=== PATIENT | male | born 1930 | race Caucasian/White ===

== ENCOUNTER 2017-10-08 10:02 | Inpatient (IN) | payer MEDICARE, OTHER ==
[2017-10-08 10:44] LABS: ADD MAN DIFF? NO
[2017-10-08 10:47] LABS: BASO # 0.1 x10^3/uL (0.0-0.2); BASO % 1 % (0-3); EOS # 0.1 x10^3/uL (0.0-0.7); EOS % 1 % (0-3); HEMATOCRIT 37.4 % (39.0-53.0); HEMOGLOBIN 12.5 g/dL (13.0-17.5); LYMPH # 1.7 x10^3/uL (1.0-4.8); LYMPH % 22 % (24-48); MEAN CORPUSCULAR HEMOGLOBIN 29 pg (25-35); MEAN CORPUSCULAR HGB CONC 33 g/dL (31-37); MEAN CORPUSCULAR VOLUME 87 fL (79-100); MONO # 0.7 x10^3/uL (0.0-1.1); MONO % 9 % (0-9); NEUT # 5.4 x10^3uL (1.8-7.7); NEUT % 67 % (31-73); PLATELET COUNT 221 x10^3/uL (140-400); RED BLOOD COUNT 4.28 x10^6/uL (4.30-5.70); RED CELL DISTRIBUTION WIDTH 13.6 % (11.5-14.5)
[2017-10-08 11:00] LABS: INR 1.1 (0.8-1.1); PARTIAL THROMBOPLASTIN TIME 33 SEC (24-38); PROTHROMBIN TIME PATIENT 13.2 SEC (11.7-14.0)
[2017-10-08 11:04] LABS: ANION GAP 12 (6-14); BLOOD UREA NITROGEN 25 mg/dL (8-26); CALCIUM 9.6 mg/dL (8.5-10.1); CARBON DIOXIDE 25 mmol/L (21-32); CHLORIDE 95 mmol/L (98-107); CREATININE 1.8 mg/dL (0.7-1.3); GLUCOSE 110 mg/dL (70-99); POTASSIUM 4.4 mmol/L (3.5-5.1); SODIUM 132 mmol/L (136-145)
[2017-10-08 11:09] LABS: ALBUMIN 3.8 g/dL (3.4-5.0); ALK PHOS 44 U/L (46-116); ALT (SGPT) 20 U/L (16-63); AST (SGOT) 26 U/L (15-37); DIRECT BILIRUBIN 0.3 mg/dL (0.0-0.2); MAGNESIUM 1.9 mg/dL (1.8-2.4); TOTAL BILIRUBIN 0.7 mg/dL (0.2-1.0); TOTAL PROTEIN 7.6 g/dL (6.4-8.2)
[2017-10-08 11:09] LABS: AMMONIA 11 mcmol/L (11-34)
[2017-10-08 11:13] LABS: TROPONINI < 0.017 ng/mL (0.000-0.055)
[2017-10-08 11:19] LABS: NT-PRO BNP 233 pg/mL (0-449)
[2017-10-08 11:19] LABS: CKMB MASS 3.1 ng/mL (0.0-3.6); CREATINE KINASE 158 U/L (39-308)
[2017-10-08 11:31] LABS: BASE EXCESS ABG -2 mmol/L (-3-3); HCO3 ABG 22 mmol/L (21-28); PCO2 ABG 36 mmHg (35-46); PH ABG 7.41 (7.35-7.45); PO2 ABG 63 mmHg (65-108); SAT O2 ABG 92 % (92-99)
[2017-10-08] MEDS ORDERED: ONDANSETRON PF 4 MG/2 ML VIAL. IV (13:45)
[2017-10-08 14:04] LABS: BILIRUBIN,URINE NEGATIVE (NEG); CLARITY,URINE CLEAR; COLOR,URINE YELLOW; GLUCOSE,URINE NEGATIVE (NEG); NITRITE,URINE NEGATIVE (NEG); PH,URINE 6.5; PROTEIN,URINE NEGATIVE (NEG-TRACE)
[2017-10-08 14:11] LABS: BARBITURATES NEG (NEG); BENZODIAZEPINES NEG (NEG); CANNABINOIDS NEG (NEG); COCAINE NEG (NEG); METHADONE NEG (NEG); OPIATES NEG (NEG); PHENCYCLIDINE NEG (NEG)
[2017-10-08 14:13] LABS: AMPHETAMINE/METHAMPHETAMINE NEG (NEG); ETHANOL, URINE NEG (NEG); RBC,URINE 0 /HPF (0-2)
[2017-10-08 14:14] LABS: BACTERIA,URINE 0 /HPF (0-FEW); SQUAMOUS EPITHELIAL CELL,UR FEW /LPF
[2017-10-08] MEDS ORDERED: ALBUTEROL SULFATE 2.5 MG/3 ML NEBU. NEB (15:00)
[2017-10-08] MEDS ORDERED: ALBUTEROL SULFATE 8GM INHALER. INH (15:00)
[2017-10-08] MEDS: MECLIZINE HCL 12.5 MG TABLET. PO ×2 (15:00→20:54)
[2017-10-08] MEDS: CARVEDILOL 12.5 MG TABLET. PO (17:36)
[2017-10-08] MEDS: BUDESONIDE 0.5 MG/2 ML NEBU. NEB (19:59)
[2017-10-08] MEDS: ALBUTEROL SULFATE 2.5 MG/3 ML NEBU. NEB (19:59)
[2017-10-08] MEDS: ZOLPIDEM 5 MG TABLET. PO (20:54)
[2017-10-08] MEDS: APIXABAN 2.5 MG TABLET. PO (20:54)
[2017-10-08] MEDS: SIMVASTATIN 40 MG TABLET. PO (20:54)
[2017-10-08] MEDS: MIRTAZAPINE 15 MG TABLET PO (20:54)
[2017-10-08] MEDS ORDERED: NON FORMULARY ITEM (Fluticasone/Salmeterol (Advair 250-50 Diskus) 1 PUFF) IH (21:00)
[2017-10-09 01:43] LABS: ADD MAN DIFF? NO
[2017-10-09 02:07] LABS: BASO # 0.1 x10^3/uL (0.0-0.2); BASO % 1 % (0-3); EOS # 0.1 x10^3/uL (0.0-0.7); EOS % 1 % (0-3); HEMATOCRIT 33.6 % (39.0-53.0); HEMOGLOBIN 11.3 g/dL (13.0-17.5); LYMPH # 1.9 x10^3/uL (1.0-4.8); LYMPH % 24 % (24-48); MEAN CORPUSCULAR HEMOGLOBIN 29 pg (25-35); MEAN CORPUSCULAR HGB CONC 34 g/dL (31-37); MEAN CORPUSCULAR VOLUME 88 fL (79-100); MONO # 0.6 x10^3/uL (0.0-1.1); MONO % 8 % (0-9); NEUT # 5.2 x10^3uL (1.8-7.7); NEUT % 66 % (31-73); PLATELET COUNT 208 x10^3/uL (140-400); RED BLOOD COUNT 3.84 x10^6/uL (4.30-5.70); RED CELL DISTRIBUTION WIDTH 13.5 % (11.5-14.5); WHITE BLOOD COUNT 7.9 x10^3/uL (4.0-11.0)
[2017-10-09 02:25] LABS: ANION GAP 9 (6-14); BLOOD UREA NITROGEN 25 mg/dL (8-26); CALCIUM 9.2 mg/dL (8.5-10.1); CARBON DIOXIDE 27 mmol/L (21-32); CHLORIDE 97 mmol/L (98-107); CHOLESTEROL 190 mg/dL (0-200); CREATININE 1.7 mg/dL (0.7-1.3); GFR 38.4; GLUCOSE 102 mg/dL (70-99); HDLC 16 mg/dL (40-60); LDLC 109 mg/dL (0-100); NON-HDL CHOLESTEROL 174 mg/dL (0-129); POTASSIUM 4.1 mmol/L (3.5-5.1); SODIUM 133 mmol/L (136-145); TRIGLYCERIDES 325 mg/dL (0-150); VLDLC 65 mg/dL (0-40)
[2017-10-09 02:26] LABS: CHOLESTEROL/HDL RATIO 11.9
[2017-10-09 02:28] LABS: TROPONINI 0.023 ng/mL (0.000-0.055)
[2017-10-09 02:35] LABS: THYROID STIM HORMONE (TSH) 51.266 uIU/mL (0.358-3.74)
[2017-10-09 03:54] LABS: SEDIMENTATION RATE 10 (0-15)
[2017-10-09] MEDS: BUDESONIDE 0.5 MG/2 ML NEBU. NEB ×2 (07:44→20:06)
[2017-10-09] MEDS: ALBUTEROL SULFATE 2.5 MG/3 ML NEBU. NEB ×4 (07:45→20:06)
[2017-10-09 09:02] LABS: VITAMIN-B12 1099 pg/mL (247-911)
[2017-10-09 09:02] LABS: FOLATE 3.24 ng/ml (3.2-20.0)
[2017-10-09] MEDS: CITALOPRAM 20 MG TABLET. PO (09:49)
[2017-10-09] MEDS: DOXAZOSIN MESYLATE 4 MG TABLET. PO (09:49)
[2017-10-09] MEDS: TAMSULOSIN 0.4 MG CAP.ER.24H. PO (09:50)
[2017-10-09] MEDS: LEVOTHYROXINE 50 MCG TABLET PO (09:50)
[2017-10-09] MEDS: MECLIZINE HCL 12.5 MG TABLET. PO ×3 (09:50→20:18)
[2017-10-09] MEDS: LISINOPRIL 10 MG TABLET PO (09:50)
[2017-10-09] MEDS: APIXABAN 2.5 MG TABLET. PO ×2 (09:51→20:18)
[2017-10-09] MEDS: CARVEDILOL 12.5 MG TABLET. PO ×2 (09:51→16:57)
[2017-10-09] MEDS: ASPIRIN ENTERIC COATED 325 MG TABLET.DR. PO (09:51)
[2017-10-09] MEDS: SIMVASTATIN 40 MG TABLET. PO (20:17)
[2017-10-09] MEDS: ZOLPIDEM 5 MG TABLET. PO (20:18)
[2017-10-09] MEDS: MIRTAZAPINE 15 MG TABLET PO (20:18)
[2017-10-10] MEDS: LEVOTHYROXINE 50 MCG TABLET PO (06:07)
[2017-10-10] MEDS: CITALOPRAM 20 MG TABLET. PO (08:42)
[2017-10-10] MEDS: ASPIRIN ENTERIC COATED 325 MG TABLET.DR. PO (08:42)
[2017-10-10] MEDS: MECLIZINE HCL 12.5 MG TABLET. PO ×3 (08:42→21:59)
[2017-10-10] MEDS: DOXAZOSIN MESYLATE 4 MG TABLET. PO (08:42)
[2017-10-10] MEDS: TAMSULOSIN 0.4 MG CAP.ER.24H. PO (08:42)
[2017-10-10] MEDS: APIXABAN 2.5 MG TABLET. PO ×2 (08:43→21:59)
[2017-10-10] MEDS: CARVEDILOL 12.5 MG TABLET. PO ×2 (08:46→17:06)
[2017-10-10] MEDS: LISINOPRIL 10 MG TABLET PO (08:46)
[2017-10-10] MEDS: BUDESONIDE 0.5 MG/2 ML NEBU. NEB ×2 (09:21→20:00)
[2017-10-10] MEDS: ALBUTEROL SULFATE 2.5 MG/3 ML NEBU. NEB ×4 (09:21→20:00)
[2017-10-10] MEDS: ANTI-COAG MONITOR BY PHARMACY. MC (14:35)
[2017-10-10] MEDS: SIMVASTATIN 40 MG TABLET. PO (21:59)
[2017-10-10] MEDS: ZOLPIDEM 5 MG TABLET. PO (21:59)
[2017-10-10] MEDS: MIRTAZAPINE 15 MG TABLET PO (21:59)
[2017-10-11] MEDS: LEVOTHYROXINE 50 MCG TABLET PO (06:17)
[2017-10-11] MEDS: ANTI-COAG MONITOR BY PHARMACY. MC (07:46)
[2017-10-11] MEDS: ALBUTEROL SULFATE 2.5 MG/3 ML NEBU. NEB ×2 (07:56→11:33)
[2017-10-11] MEDS: BUDESONIDE 0.5 MG/2 ML NEBU. NEB (07:56)
[2017-10-11] MEDS: CARVEDILOL 12.5 MG TABLET. PO (08:00)
[2017-10-11] MEDS: ASPIRIN ENTERIC COATED 325 MG TABLET.DR. PO (08:27)
[2017-10-11] MEDS: TAMSULOSIN 0.4 MG CAP.ER.24H. PO (08:28)
[2017-10-11] MEDS: CITALOPRAM 20 MG TABLET. PO (08:28)
[2017-10-11] MEDS: DOXAZOSIN MESYLATE 4 MG TABLET. PO (08:28)
[2017-10-11] MEDS: LISINOPRIL 10 MG TABLET PO (08:29)
[2017-10-11] MEDS: MECLIZINE HCL 12.5 MG TABLET. PO ×2 (08:29→13:47)
[2017-10-11] MEDS: APIXABAN 2.5 MG TABLET. PO (08:33)
== END 2017-10-11 15:01 | DRG 64 ==
LOC: ER 10:02 → 5 SOUTH 11:45
DX: I63.9 Cerebral infarction, unspecified (principal); G93.40 Encephalopathy, unspecified; I48.91 Unspecified atrial fibrillation; F03.90 Unspecified dementia, unspecified severity, without behavioral disturbance, psychotic disturbance, mood disturbance, and anxiety; I25.5 Ischemic cardiomyopathy; E03.9 Hypothyroidism, unspecified; E78.5 Hyperlipidemia, unspecified; G47.33 Obstructive sleep apnea (adult) (pediatric); G43.909 Migraine, unspecified, not intractable, without status migrainosus; I25.10 Atherosclerotic heart disease of native coronary artery without angina pectoris; H91.90 Unspecified hearing loss, unspecified ear; I12.9 Hypertensive chronic kidney disease with stage 1 through stage 4 chronic kidney disease, or unspecified chronic kidney disease; I73.9 Peripheral vascular disease, unspecified; N18.3 Chronic kidney disease, stage 3 (moderate); Z82.3 Family history of stroke; Z86.73 Personal history of transient ischemic attack (TIA), and cerebral infarction without residual deficits; Z87.891 Personal history of nicotine dependence; Z95.5 Presence of coronary angioplasty implant and graft
CPT/HCPCS: 36415; 36600; 70450; 71045; 80048; 80061; 80076; 80307; 81001; 82140; 82553; 82607; 82746; 82805; 83735; 83880; 84443; 84484; 85025; 85610; 85651; 85730; 87086; 93005; 93306; 93880; 94640; 94760; 97116-GP; 97162-GP; 97165-GO; 99285; 99285-25; J7613; J7626; J8597

== ENCOUNTER 2018-04-13 11:33 | Emergency (ER) | payer MEDICARE, OTHER ==
[~2018-04-13] VITALS: Ht 175.3 cm; Wt 81.6 kg
[~2018-04-13 11:33] MED LIST: ACET325T9 PO; ALBU8.5H8 PO; APIX2.5T PO; CARV25TA2 PO; CITA40TA5 PO; DONE5TAB56 PO; DOXA8TAB59 PO; FENO200C PO; FLUT1DIS3 IH; LEVO50TA5 PO; LEVO75TA5 PO; LISI-338 PO; LISI10TA2 PO; MECL25TA3 PO; MIRT15TA3 PO; MIRT30TA3 PO; POLY15DR28 OP; SIMV20TA3 PO; SIMV40TA3 PO; TAMS0.4C2 PO; ZOLP5TAB5 PO
--- NOTE | 2018-04-13 12:16 | PHYS DOC ---
Past Medical History Past Medical History: A-Fib, CAD, COPD, Dementia, Depression, High Cholesterol , Heart Disease, Hypertension, Hypothyroid, Migraines, Renal Disease, Other Additional Past Medical Histor: prostate problems possible CA; sleep apnea; Abd aortic aneurysm Past Surgical History: Appendectomy, Pacemaker, Other Additional Past Surgical Histo: back; veins in legs; hernia Alcohol Use: None Drug Use: None Social History Narrative: patient lives in an assisted living facility Adult General Chief Complaint Chief Complaint: MECHANICAL FALL HPI HPI Patient is an 87 old male who presents to the emergency department for evaluation. Earlier this morning, the patient slipped on a slick floor in his bathroom, and fell and hit the back of his head on the shower. He also appears to have some back tenderness. He did not feel dizzy or lightheaded prior to the fall but states he slipped on the wet surface of the floor. He denies loss of consciousness. He was able to have himself off of the floor, and get himself dressed and is ambulatory at baseline, with the use of his cane. Other than some mild pain in his head, he denies any other painful areas. He denies any extremity injury or pain, numbness, weakness. His mental status is not different than baseline, according to his son who accompanies him to the emergency department. There are no alleviating, or exacerbating factors to his symptoms otherwise. The patient does take Eliquis for a past history of atrial fibrillation. The patient's son states that he was steady on his feet today, with the use of his cane. The patient does have a history of a AAA, which is being monitored. He was last noted at 4.1 cm earlier this year. Review of Systems Review of Systems Constitutional: Denies fever or chills [] Eyes: Denies change in visual acuity, redness, or eye pain [] HENT: Denies nasal congestion or sore throat [] Respiratory: Denies cough or shortness of breath [] Cardiovascular: The patient denies any shortness of breath, chest pain, palpitations, or orthopnea [] GI: Denies abdominal pain, nausea, vomiting, bloody stools or diarrhea [] : Denies dysuria or hematuria [] Musculoskeletal: Denies neck pain or joint pain [] Integument: Denies rash or skin lesions [] Neurologic: Denies confusion, focal weakness or sensory changes [] Endocrine: Denies polyuria or polydipsia [] All other systems were reviewed and found to be within normal limits, except as documented in this note. Current Medications Current Medications Current Medications Medications (Trade) Dose Ordered Sig/James Start Time Stop Time Status Last Admin Dose Admin Acetaminophen (Tylenol) 650 mg 1X ONCE 04/13/18 12:30 04/13/18 12:31 DC 04/13/18 12:20 650 MG Allergies Allergies Allergies Coded Allergies Type Severity Reaction Last Updated Verified No Known Medication Allergies Allergy Unknown 02/05/18 Yes Uncoded Allergies Type Severity Reaction Last Updated Verified NON MRI PACEMAKER Allergy Unknown 10/08/17 Physical Exam Physical Exam PHYSICAL EXAM: CONSTITUTIONAL: Well developed, well nourished HEAD: normocephalic, is a contusion on the posterior aspect of the scalp, more to the right of midline. There is no crepitus, the remainder of the cranium is atraumatic. EENT: PERRL, EOMI. Conjunctivae normal color, sclerae non-icteric; moist mucous membranes. NECK: Supple, non-tender; no meningismus. LUNGS: Lungs CTA, breathing even and unlabored. Normal air movement. HEART: Regular rate and rhythm, no murmur CHEST: No deformity; non-tender ABDOMEN: The abdomen is soft, and non-tender, no masses or bruits. EXTREM: Normal ROM; no deformity, no calf tenderness. Normal pulses palpable in all extremities. There is no pedal edema. The extremities are atraumatic, without any tenderness to palpation. SKIN: No rash; no diaphoresis NEURO: Alert; normal speech and cognition; CN's grossly intact; strength grossly intact without focal deficit. BACK: No CVA TTP. There is tenderness to palpation of the lumbar spine diffusely , without any step-off. The remainder of the back is nontender. Current Patient Data Vital Signs Vital Signs Date Time Temp Pulse Resp B/P (MAP) Pulse Ox O2 Delivery O2 Flow Rate FiO2 04/13/18 11:59 98.1 68 20 163/84 (110) 95 Room Air 98.1 EKG EKG Probable atrial sensed, ventricular paced rhythm at a rate of 68 bpm with QRS widening without acute ischemic ST/T changes. Radiology/Procedures Radiology/Procedures [PROCEDURE: CT HEAD WO CONTRAST CT HEAD WO CONTRAST Indication: Head injury after a fall. Exposure: One or more of the following individualized dose reduction techniques were utilized for this examination: 1. Automated exposure control 2. Adjustment of the mA and/or kV according to patient size 3. Use of iterative reconstruction technique. Comparison: October 08, 2017 image is available but the report is not available Contrast: None FINDINGS: Posterior fossa is unremarkable. No evidence of acute intracranial hemorrhage or abnormal extra-axial fluid collection. No evidence of mass effect or midline shift. Low-density in the white matter bilaterally, a nonspecific finding, but which is commonly due to chronic small vessel ischemic disease in a patient of this age. Prominence of ventricles and sulci, compatible with involutional change or atrophy. Intracranial arterial calcifications are identified. There are 2 small hypodense foci in the right thalamus, also identified on prior study, most compatible with small lacunar infarcts. Low-density in the occipital lobe may be due to an enlarged retracted occipital horn of the ventricle, or an adjacent encephalomalacia. This was also seen previously. Visualized orbits are unremarkable. Visualized paranasal sinuses and mastoids are clear. No evidence of depressed skull fracture. Hyperdense swelling of the high right posterior parietal scalp, most likely a hematoma. Impression: 1. High right parietal scalp hematoma. 2. No acute intracranial hemorrhage. 3. Chronic findings are again identified, detailed above.] PROCEDURE: LUMBAR SPINE 2-3V Examination: 2 views of the lumbar spine HISTORY: History of lobe. Fall COMPARISON: None available FINDINGS: The visualized vertebral body heights are maintained. There is mild 2 mm anterolisthesis of L3 on L4. There is severe intervertebral disc height loss identified throughout the lumbar spine particularly at L3-L4 vertebral level. Mild lumbar dextro scoliosis. Diffuse atherosclerotic calcification of the abdominal aorta with aneurysmal change of the infrarenal abdominal aorta measuring 5 cm in AP dimension IMPRESSION: 1. Severe degenerative changes lumbar spine. 2. Abdominal aortic aneurysm. Course & Med Decision Making Course & Med Decision Making Pertinent Imaging studies reviewed. (See chart for details) [1:40 PM:Patient remains stable. I discussed test results, the need for close follow-up, and return precautions.] Dragon Disclaimer Dragon Disclaimer This electronic medical record was generated, in whole or in part, using a voice recognition dictation system. Departure Departure Impression: Primary Impression: Head injury Additional Impression: Contusion, back Disposition: 01 HOME, SELF-CARE Condition: STABLE Referrals: JACOB SOUTH MD (PCP) Patient Instructions: Back Injury Prevention, Fall Prevention and Home Safety, Head Injury, Adult Problem Qualifiers MINOO LUNDY MD Apr 13, 2018 12:16
[2018-04-13] MEDS ORDERED: ACETAMINOPHEN 325 MG TABLET. PO ONE (12:30)
--- NOTE | 2018-04-13 12:44 | RAD ---
Examination: 2 views of the lumbar spine HISTORY: History of lobe. Fall COMPARISON: None available FINDINGS: The visualized vertebral body heights are maintained. There is mild 2 mm anterolisthesis of L3 on L4. There is severe intervertebral disc height loss identified throughout the lumbar spine particularly at L3-L4 vertebral level. Mild lumbar dextro scoliosis. Diffuse atherosclerotic calcification of the abdominal aorta with aneurysmal change of the infrarenal abdominal aorta measuring 5 cm in AP dimension IMPRESSION: 1. Severe degenerative changes lumbar spine. 2. Abdominal aortic aneurysm. Electronically signed by: Venu Rosen MD (04/13/2018 12:40 PM) [id number]
--- NOTE | 2018-04-13 13:08 | RAD ---
CT HEAD WO CONTRAST Indication: Head injury after a fall. Exposure: One or more of the following individualized dose reduction techniques were utilized for this examination: 1. Automated exposure control 2. Adjustment of the mA and/or kV according to patient size 3. Use of iterative reconstruction technique. Comparison: October 08, 2017 image is available but the report is not available Contrast: None FINDINGS: Posterior fossa is unremarkable. No evidence of acute intracranial hemorrhage or abnormal extra-axial fluid collection. No evidence of mass effect or midline shift. Low-density in the white matter bilaterally, a nonspecific finding, but which is commonly due to chronic small vessel ischemic disease in a patient of this age. Prominence of ventricles and sulci, compatible with involutional change or atrophy. Intracranial arterial calcifications are identified. There are 2 small hypodense foci in the right thalamus, also identified on prior study, most compatible with small lacunar infarcts. Low-density in the occipital lobe may be due to an enlarged retracted occipital horn of the ventricle, or an adjacent encephalomalacia. This was also seen previously. Visualized orbits are unremarkable. Visualized paranasal sinuses and mastoids are clear. No evidence of depressed skull fracture. Hyperdense swelling of the high right posterior parietal scalp, most likely a hematoma. Impression: 1. High right parietal scalp hematoma. 2. No acute intracranial hemorrhage. 3. Chronic findings are again identified, detailed above. Electronically signed by: Raad Saucedo MD (04/13/2018 1:05 PM) [id number]
[2018-04-13 14:00] VITALS: BP 159/85
== END 2018-04-13 14:17 | disposition home or self-care (01) ==
LOC: ER 11:33
DX: S30.0XXA Contusion of lower back and pelvis, initial encounter (principal); S09.90XA Unspecified injury of head, initial encounter; I71.4 Abdominal aortic aneurysm, without rupture; I48.91 Unspecified atrial fibrillation; J44.9 Chronic obstructive pulmonary disease, unspecified; I25.10 Atherosclerotic heart disease of native coronary artery without angina pectoris; E78.00 Pure hypercholesterolemia, unspecified; I11.9 Hypertensive heart disease without heart failure; E03.9 Hypothyroidism, unspecified; G43.909 Migraine, unspecified, not intractable, without status migrainosus; N28.9 Disorder of kidney and ureter, unspecified; G47.30 Sleep apnea, unspecified; Z90.89 Acquired absence of other organs; F03.90 Unspecified dementia, unspecified severity, without behavioral disturbance, psychotic disturbance, mood disturbance, and anxiety; Z98.890 Other specified postprocedural states; Z95.0 Presence of cardiac pacemaker; W01.198A Fall on same level from slipping, tripping and stumbling with subsequent striking against other object, initial encounter; Y93.E8 Activity, other personal hygiene; Y92.091 Bathroom in other non-institutional residence as the place of occurrence of the external cause; Y99.8 Other external cause status
CPT/HCPCS: 70450; 72100; 99284-25

== ENCOUNTER 2018-04-20 08:23 | Emergency (ER) | payer MEDICARE, OTHER ==
[~2018-04-20] VITALS: Ht 172.7 cm; Wt 83.9 kg
[2018-04-20 08:57] LABS: BASO # 0.1 x10^3/uL (0.0-0.2); BASO % 1 % (0-3); EOS # 0.2 x10^3/uL (0.0-0.7); EOS % 2 % (0-3); HEMATOCRIT 34.6 % (39.0-53.0); HEMOGLOBIN 11.9 g/dL (13.0-17.5); LYMPH # 1.8 x10^3/uL (1.0-4.8); LYMPH % 19 % (24-48); MEAN CORPUSCULAR HEMOGLOBIN 30 pg (25-35); MEAN CORPUSCULAR HGB CONC 34 g/dL (31-37); MEAN CORPUSCULAR VOLUME 86 fL (79-100); MONO # 1.1 x10^3/uL (0.0-1.1); MONO % 12 % (0-9); NEUT # 6.5 x10^3uL (1.8-7.7); NEUT % 67 % (31-73); PLATELET COUNT 177 x10^3/uL (140-400); RED BLOOD COUNT 4.03 x10^6/uL (4.30-5.70); RED CELL DISTRIBUTION WIDTH 13.9 % (11.5-14.5); WHITE BLOOD COUNT 9.7 x10^3/uL (4.0-11.0)
--- NOTE | 2018-04-20 09:06 | EKG ---
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
[2018-04-20 09:13] LABS: CALCIUM 8.7 mg/dL (8.5-10.1); CREATININE 1.5 mg/dL (0.7-1.3); GFR 44.4; POTASSIUM 4.4 mmol/L (3.5-5.1)
--- NOTE | 2018-04-20 09:14 | RAD ---
Portable chest, 04/20/2018: HISTORY: Shortness of breath, trouble swallowing Comparison is made to a study from 02/05/2018. A left-sided transvenous pacing device remains in place with 3 leads extending into the heart. The heart size and pulmonary vascularity are normal. There is calcific plaquing and tortuosity of the thoracic aorta. No pulmonary infiltrate is seen. There is no evidence of pleural fluid. IMPRESSION: No acute cardiopulmonary abnormality is detected. Electronically signed by: Rex Polanco MD (04/20/2018 9:10 AM) [facility]
[2018-04-20] MEDS ORDERED: MORPHINE SULFATE 4 MG/ML VIAL. IV ONE (09:15)
[2018-04-20 09:25] LABS: ALBUMIN 3.4 g/dL (3.4-5.0); CREATINE KINASE 60 U/L (39-308); TOTAL BILIRUBIN 0.5 mg/dL (0.2-1.0); TOTAL PROTEIN 6.9 g/dL (6.4-8.2)
[2018-04-20] MEDS ORDERED: IOHEXOL 300 MG/ML 100ML VIAL. IV ONE (09:30)
[2018-04-20] MEDS ORDERED: CONTRAST GIVEN. MC PRN (09:45)
--- NOTE | 2018-04-20 10:13 | RAD ---
CT of the facial bones with contrast, 04/20/2018: HISTORY: Left jaw swelling Multidetector CT imaging was performed following an IV bolus injection of iodinated contrast material. There is subcutaneous edema in the submandibular region, left greater than right. The greatest streaky inflammation is centered along the inferior aspect of the left parotid gland. The left parotid gland is larger than the right. No discrete drainable fluid collection is seen to suggest abscess. The submandibular glands show no intrinsic abnormality. There is minimal mucosal thickening in the paranasal sinuses bilaterally. There may be a trace amount of free fluid in the dependent aspect of the left maxillary sinus. The orbital contents are unremarkable. There are numerous teeth absent superiorly and inferiorly. There is dental disease involving the remaining teeth. IMPRESSION: 1. Streaky inflammation in the submandibular region bilaterally, left greater than right, most prominent along the inferior margin of the left parotid gland. This inflammatory process may be of parotid or odontogenic origin. No discrete abscess is evident. 2. Mild mucosal thickening in the paranasal sinuses. PQRS Compliance Statement: One or more of the following individualized dose reduction techniques were utilized for this examination: 1. Automated exposure control 2. Adjustment of the mA and/or kV according to patient size 3. Use of iterative reconstruction technique Electronically signed by: Rex Polanco MD (04/20/2018 10:09 AM) [facility]
[2018-04-20] MEDS ORDERED: CLIN300C8 PO (10:55)
--- NOTE | 2018-04-20 10:56 | PHYS DOC ---
Past Medical History Past Medical History: A-Fib, CAD, COPD, Dementia, Depression, High Cholesterol , Heart Disease, Hypertension, Hypothyroid, Migraines, Renal Disease, Other Additional Past Medical Histor: prostate problems possible CA; sleep apnea; Abd aortic aneurysm Past Surgical History: Appendectomy, Pacemaker, Other Additional Past Surgical Histo: back; veins in legs; hernia Alcohol Use: None Drug Use: None Adult General Chief Complaint Chief Complaint: FACE PROBLEM HPI HPI Patient is a 87 year old male who presents with pain and swelling to the patient's left jaw. The patient had dental work done approximately one week ago and had his 2 front bottom teeth removed. He states that he had the sudden swelling that started yesterday. It is now very painful. He is still eating and drinking normally. He denies fever, nausea or vomiting. The patient does state that he has some mild left rib pain that is worse when he pushes on his rib. He denies radiation of the pain, diaphoresis or weakness. Review of Systems Review of Systems Constitutional: Denies fever or chills [] Eyes: Denies change in visual acuity, redness, or eye pain [] HENT: See history of present illness Respiratory: Denies cough or shortness of breath [] Cardiovascular: No additional information not addressed in HPI [] GI: Denies abdominal pain, nausea, vomiting, bloody stools or diarrhea [] : Denies dysuria or hematuria [] Musculoskeletal: See history of present illness Integument: Denies rash or skin lesions [] Neurologic: Denies headache, focal weakness or sensory changes [] Endocrine: Denies polyuria or polydipsia [] All other systems were reviewed and found to be within normal limits, except as documented in this note. Current Medications Current Medications Current Medications Medications (Trade) Dose Ordered Sig/James Start Time Stop Time Status Last Admin Dose Admin Info (CONTRAST GIVEN -- Rx MONITORING) 1 each PRN DAILY PRN 04/20/18 09:45 04/20/18 11:26 DC Iohexol (Omnipaque 300 Mg/ml) 75 ml 1X ONCE 04/20/18 09:30 04/20/18 09:34 DC 04/20/18 09:34 75 ML Morphine Sulfate (Morphine Sulfate) 4 mg 1X ONCE 04/20/18 09:15 04/20/18 09:16 DC 04/20/18 09:47 4 MG Allergies Allergies Allergies Coded Allergies Type Severity Reaction Last Updated Verified No Known Medication Allergies Allergy Unknown 02/05/18 Yes Uncoded Allergies Type Severity Reaction Last Updated Verified NON MRI PACEMAKER Allergy Unknown 10/08/17 Physical Exam Physical Exam Constitutional: Well developed, well nourished, no acute distress, non-toxic appearance. [] HENT: Normocephalic, atraumatic, bilateral external ears normal, oropharynx moist, golf ball size swelling to the patient's left jaw that is firm and warm Eyes: PERRLA, EOMI, conjunctiva normal, no discharge. [] Neck: Normal range of motion, no tenderness, supple, no stridor. [] Cardiovascular:Heart rate regular rhythm, no murmur [] Lungs & Thorax: Bilateral breath sounds clear to auscultation [] Abdomen: Bowel sounds normal, soft, no tenderness, no masses, no pulsatile masses. [] Skin: Warm, dry, no erythema, no rash. [] Neurologic: Alert and oriented X 3, normal motor function, normal sensory function, no focal deficits noted. [] Psychologic: Affect normal, judgement normal, mood normal. [] Current Patient Data Vital Signs Vital Signs Date Time Temp Pulse Resp B/P (MAP) Pulse Ox O2 Delivery O2 Flow Rate FiO2 04/20/18 11:07 70 24 131/72 (91) 94 Room Air 04/20/18 08:38 97.6 97.6 Lab Values Laboratory Tests Test 04/20/18 08:40 White Blood Count 9.7 x10^3/uL (4.0-11.0) Red Blood Count 4.03 x10^6/uL (4.30-5.70) L Hemoglobin 11.9 g/dL (13.0-17.5) L Hematocrit 34.6 % (39.0-53.0) L Mean Corpuscular Volume 86 fL (79-100) Mean Corpuscular Hemoglobin 30 pg (25-35) Mean Corpuscular Hemoglobin Concent 34 g/dL (31-37) Red Cell Distribution Width 13.9 % (11.5-14.5) Platelet Count 177 x10^3/uL (140-400) Neutrophils (%) (Auto) 67 % (31-73) Lymphocytes (%) (Auto) 19 % (24-48) L Monocytes (%) (Auto) 12 % (0-9) H Eosinophils (%) (Auto) 2 % (0-3) Basophils (%) (Auto) 1 % (0-3) Neutrophils # (Auto) 6.5 x10^3uL (1.8-7.7) Lymphocytes # (Auto) 1.8 x10^3/uL (1.0-4.8) Monocytes # (Auto) 1.1 x10^3/uL (0.0-1.1) Eosinophils # (Auto) 0.2 x10^3/uL (0.0-0.7) Basophils # (Auto) 0.1 x10^3/uL (0.0-0.2) Sodium Level 133 mmol/L (136-145) L Potassium Level 4.4 mmol/L (3.5-5.1) Chloride Level 99 mmol/L (98-107) Carbon Dioxide Level 26 mmol/L (21-32) Anion Gap 8 (6-14) Blood Urea Nitrogen 21 mg/dL (8-26) Creatinine 1.5 mg/dL (0.7-1.3) H Estimated GFR (Cockcroft-Gault) 44.4 BUN/Creatinine Ratio 14 (6-20) Glucose Level 126 mg/dL (70-99) H Lactic Acid Level < 0.3 mmol/L (0.4-2.0) L Calcium Level 8.7 mg/dL (8.5-10.1) Total Bilirubin 0.5 mg/dL (0.2-1.0) Aspartate Amino Transferase (AST) 17 U/L (15-37) Alanine Aminotransferase (ALT) 23 U/L (16-63) Alkaline Phosphatase 78 U/L (46-116) Creatine Kinase 60 U/L (39-308) Creatine Kinase MB (Mass) 1.2 ng/mL (0.0-3.6) Creatine Kinase MB Relative Index % (0-4) Troponin I Quantitative < 0.017 ng/mL (0.000-0.055) Total Protein 6.9 g/dL (6.4-8.2) Albumin 3.4 g/dL (3.4-5.0) Albumin/Globulin Ratio 1.0 (1.0-1.7) Laboratory Tests 04/20/18 08:40 Laboratory Tests 04/20/18 08:40 EKG EKG [] Radiology/Procedures Radiology/Procedures []PATIENT: MURRAY ROE EACCOUNT: [id number]#: [id number] : 1930 LOCATION: ER AGE: 87 SEX: M EXAM STATUS: REG ER ORD. PHYSICIAN: KATHERINE CHI APRN REASON: swelling to left jaw PROCEDURE: CT MAXILLOFACIAL W/CONTRAST CT of the facial bones with contrast, 04/20/2018: HISTORY: Left jaw swelling Multidetector CT imaging was performed following an IV bolus injection of iodinated contrast material. There is subcutaneous edema in the submandibular region, left greater than right. The greatest streaky inflammation is centered along the inferior aspect of the left parotid gland. The left parotid gland is larger than the right. No discrete drainable fluid collection is seen to suggest abscess. The submandibular glands show no intrinsic abnormality. There is minimal mucosal thickening in the paranasal sinuses bilaterally. There may be a trace amount of free fluid in the dependent aspect of the left maxillary sinus. The orbital contents are unremarkable. There are numerous teeth absent superiorly and inferiorly. There is dental disease involving the remaining teeth. IMPRESSION: 1. Streaky inflammation in the submandibular region bilaterally, left greater than right, most prominent along the inferior margin of the left parotid gland. This inflammatory process may be of parotid or odontogenic origin. No discrete abscess is evident. 2. Mild mucosal thickening in the paranasal sinuses. PQRS Compliance Statement: One or more of the following individualized dose reduction techniques were utilized for this examination: 1. Automated exposure control 2. Adjustment of the mA and/or kV according to patient size 3. Use of iterative reconstruction technique Electronically signed by: Rex Polanco MD (04/20/2018 10:09 AM) [facility] DICTATED and SIGNED BY: REX POLANCO MD DATE: 04/20/18 0957 Course & Med Decision Making Course & Med Decision Making Pertinent Labs and Imaging studies reviewed. (See chart for details) []Imaging studies are positive for an infected parotid gland. The patient will be discharged to home with antibiotics and pain medication. He is to follow-up with his primary care for provider for a recheck. He is to return immediately to the emergency department if worsening. He is in agreement with this plan. Dragon Disclaimer Dragon Disclaimer This electronic medical record was generated, in whole or in part, using a voice recognition dictation system. Departure Departure Impression: Primary Impression: Parotitis Disposition: 01 HOME, SELF-CARE Condition: STABLE Referrals: JACOB SOUTH MD (PCP) Patient Instructions: Parotitis Additional Instructions: Take the antibiotic as directed. Increase fluids and rest. Follow-up with your primary care provider in 2 days for recheck or return to the emergency department if worsening. Take the pain medication as directed. Do not drive or operate heavy machinery while taking this medication. Scripts Hydrocodone/Apap 5-325 (NORCO 5-325 TABLET) 1 Each Tablet 1 TAB PO PRN Q6HRS PRN for PAIN, #10 TAB 0 Refills Prov: KATHERINE CHI APRN 04/20/18 Clindamycin Hcl (CLINDAMYCIN HCL) 300 Mg Capsule 1 CAP PO TID, #30 CAP Prov: KATHERINE CHI APRN 04/20/18 KATHERINE CHI APRN Apr 20, 2018 10:56
[2018-04-20] MEDS ORDERED: HYDR-971 PO (10:58)
[2018-04-20 11:07] VITALS: BP 131/72
== END 2018-04-20 11:15 | disposition home or self-care (01) ==
LOC: ER 08:23
DX: K11.20 Sialoadenitis, unspecified (principal); I48.91 Unspecified atrial fibrillation; I10 Essential (primary) hypertension; I25.10 Atherosclerotic heart disease of native coronary artery without angina pectoris; J44.9 Chronic obstructive pulmonary disease, unspecified; F32.9 Major depressive disorder, single episode, unspecified; E78.00 Pure hypercholesterolemia, unspecified; E03.9 Hypothyroidism, unspecified; G43.909 Migraine, unspecified, not intractable, without status migrainosus; Z90.89 Acquired absence of other organs
CPT/HCPCS: 36415; 70487; 71045; 80053; 82553; 83605; 84484; 85025; 93005; 96374; 99285; J2270; Q9967

== ENCOUNTER 2019-09-28 18:04 | Emergency (ER) | payer MEDICARE, OTHER ==
[~2019-09-28] VITALS: Ht 172.7 cm; Wt 91.0 kg
[~2019-09-28 18:04] MED LIST changes: +ALBU2.5V8 PO; -ALBU8.5H8 PO; +CLIN300C8 PO; +HYDR-3164 PO; +MECL-75 PO; -MECL25TA3 PO; +SIMV20TA18 PO; -SIMV20TA3 PO; +SIMV40TA18 PO; -SIMV40TA3 PO
--- NOTE | 2019-09-28 18:23 | PHYS DOC ---
Past Medical History Past Medical History: A-Fib, CAD, COPD, Dementia, Depression, High Cholesterol, Heart Disease, Hypertension, Hypothyroid, Migraines, Renal Disease, Other Additional Past Medical Histor: prostate problems possible CA; sleep apnea; Abd aortic aneurysm Past Surgical History: Appendectomy, Pacemaker, Other Additional Past Surgical Histo: back; veins in legs; hernia Alcohol Use: None Drug Use: None Adult General Chief Complaint Chief Complaint: TRAUMA ALERT HPI HPI 89 year old male presents to the emergency department after a fall. Patient's underlying history of hypothyroid, hypertension, COPD, chronic anticoagulation. Patient states he fell hitting his head, positive loss of consciousness at that time. Patient complains of neck pain, head pain. Fall took place on September 20 according to the notes. Nothing makes his pain worse, nothing makes his pain better. Patient denies any chest pain, shortness breath, nausea, vomiting. He does complain of some headache. Patient denies any abdominal pain, visual change. Review of Systems Review of Systems Constitutional: Denies fever or chills [] Respiratory: Denies cough or shortness of breath [] Cardiovascular: No additional information not addressed in HPI [] GI: Denies abdominal pain, nausea, vomiting, bloody stools or diarrhea [] Musculoskeletal: neck pain Integument: Denies rash or skin lesions [] Neurologic: + headache, no focal weakness or sensory changes [] All other systems were reviewed and found to be within normal limits, except as documented in this note. Current Medications Current Medications Current Medications Medications (Trade) Dose Ordered Sig/James Start Time Stop Time Status Last Admin Dose Admin Tetanus/ Diphtheria Toxoids (Tenivac Syringe) 0.5 ml ONCE ONCE 09/28/19 18:30 09/28/19 18:31 DC Allergies Allergies Allergies Coded Allergies Type Severity Reaction Last Updated Verified No Known Medication Allergies Allergy Unknown 02/05/18 Yes Uncoded Allergies Type Severity Reaction Last Updated Verified NON MRI PACEMAKER Allergy Unknown 10/08/17 Physical Exam Physical Exam Constitutional: Well developed, well nourished, no acute distress, non-toxic appearance. [] HENT: Normocephalic, abrasion to the occiput, bilateral external ears normal, oropharynx moist, no oral exudates, nose normal. [] Eyes: right pupil minimal reactive 2/2 eye surgery, left pupil constricted, EOMI, conjunctiva normal, no discharge. [] Neck: Normal range of motion, no tenderness, supple, no stridor. [] Cardiovascular:Heart rate regular rhythm, no murmur [] Lungs & Thorax: Bilateral breath sounds clear to auscultation [] Abdomen: Bowel sounds normal, soft, no tenderness, no masses, no pulsatile masses. [] Skin: Warm, dry, no erythema, no rash. [] Back: No tenderness, no CVA tenderness. [] Extremities: No tenderness, no edema. [] Neurologic: Alert and oriented X 3, no focal deficits noted. [] Psychologic: Affect normal, judgement normal, mood normal. [] Current Patient Data Vital Signs Vital Signs Date Time Temp Pulse Resp B/P (MAP) Pulse Ox O2 Delivery O2 Flow Rate FiO2 09/28/19 18:04 98.5 83 20 216/98 (137) 98 Room Air 98.5 Lab Values Laboratory Tests Test 09/28/19 18:10 09/28/19 18:15 White Blood Count 8.3 x10^3/uL (4.0-11.0) Red Blood Count 3.45 x10^6/uL (4.30-5.70) L Hemoglobin 10.6 g/dL (13.0-17.5) L Hematocrit 30.0 % (39.0-53.0) L Mean Corpuscular Volume 87 fL (79-100) Mean Corpuscular Hemoglobin 31 pg (25-35) Mean Corpuscular Hemoglobin Concent 35 g/dL (31-37) Red Cell Distribution Width 14.1 % (11.5-14.5) Platelet Count 179 x10^3/uL (140-400) Neutrophils (%) (Auto) 55 % (31-73) Lymphocytes (%) (Auto) 28 % (24-48) Monocytes (%) (Auto) 14 % (0-9) H Eosinophils (%) (Auto) 2 % (0-3) Basophils (%) (Auto) 1 % (0-3) Neutrophils # (Auto) 4.6 x10^3/uL (1.8-7.7) Lymphocytes # (Auto) 2.3 x10^3/uL (1.0-4.8) Monocytes # (Auto) 1.2 x10^3/uL (0.0-1.1) H Eosinophils # (Auto) 0.2 x10^3/uL (0.0-0.7) Basophils # (Auto) 0.1 x10^3/uL (0.0-0.2) Sodium Level 129 mmol/L (136-145) L Potassium Level 4.8 mmol/L (3.5-5.1) Chloride Level 94 mmol/L (98-107) L Carbon Dioxide Level 27 mmol/L (21-32) Anion Gap 8 (6-14) Blood Urea Nitrogen 22 mg/dL (8-26) Creatinine 1.4 mg/dL (0.7-1.3) H Estimated GFR (Cockcroft-Gault) 47.8 BUN/Creatinine Ratio 16 (6-20) Glucose Level 113 mg/dL (70-99) H Calcium Level 8.8 mg/dL (8.5-10.1) Total Bilirubin 0.4 mg/dL (0.2-1.0) Aspartate Amino Transferase (AST) 28 U/L (15-37) Alanine Aminotransferase (ALT) 34 U/L (16-63) Alkaline Phosphatase 100 U/L (46-116) Total Protein 6.7 g/dL (6.4-8.2) Albumin 3.2 g/dL (3.4-5.0) L Albumin/Globulin Ratio 0.9 (1.0-1.7) L Urine Collection Type Unknown Urine Color Yellow Urine Clarity Cloudy Urine pH 7.0 Urine Specific [place] 1.010 Urine Protein Negative mg/dL (NEG-TRACE) Urine Glucose (UA) Negative mg/dL (NEG) Urine Ketones (Stick) Negative mg/dL (NEG) Urine Blood Negative (NEG) Urine Nitrite Negative (NEG) Urine Bilirubin Negative (NEG) Urine Urobilinogen Dipstick 1.0 mg/dL (0.2 mg/dL) Urine Leukocyte Esterase Trace (NEG) Urine RBC Occ /HPF (0-2) Urine WBC 1-4 /HPF (0-4) Urine Squamous Epithelial Cells Few /LPF Urine Bacteria 0 /HPF (0-FEW) Laboratory Tests 09/28/19 18:10 Laboratory Tests 09/28/19 18:10 EKG EKG [] Radiology/Procedures Radiology/Procedures [facility] [address] [place] [address] IMAGING REPORT Signed PATIENT: MURRAY ROE ACCOUNT: [id number] : 1930 LOCATION: ER AGE: 89 SEX: M EXAM STATUS: REG ER ORD. PHYSICIAN: MEG KAM MD REASON: fall, + LOC, chronic anticoagulation PROCEDURE: CT HEAD AND CERVICAL SPINE WO Examination: CT HEAD AND CERVICAL SPINE WO History: Loss of consciousness, on chronic anticoagulation, fall Comparison/Correlation: 04/13/2018 CT head without contrast Findings: Axial images of the head and cervical spinal were obtained without contrast. Sagittal and coronal reformatted images of the cervical spine were obtained. Axial images of the head demonstrate atrophy. Chronic ischemic changes in white matter noted. Old right thalamic lacunar infarct is present. No intracranial hemorrhage, midline shift, or mass effect. Small old cerebellar infarcts are suggested. Atlantoaxial joint degenerative remodeling is present. Severe disc space narrowing at C2-3 is present. Severe C5-C7 disc space narrowing is present. Moderate to severe C7-T1 disc space narrowing is present. Facet joint degenerative hypertrophy bilaterally is present at multiple levels throughout the cervical spine. No significant malalignment. Minimal fluid in the right sphenoid sinus is evident. Visualized soft tissues of the neck are unremarkable. Impression: No intracranial hemorrhage. Degenerative changes of the cervical spine. No fracture or suspicious malalignment. RS Compliance Statement: One or more of the following individualized dose reduction techniques were utilized for this examination: 1. Automated exposure control 2. Adjustment of the mA and/or kV according to patient size 3. Use of iterative reconstruction technique Electronically signed by: Felipe Abraham MD (09/28/2019 6:51 PM) [facility] DICTATED and SIGNED BY: FELIPE ABRAHAM MD DATE: 09/28/191850 [] Course & Med Decision Making Course & Med Decision Making Pertinent Labs and Imaging studies reviewed. (See chart for details) [] 89 year old male presents to the emergency department after a fall. Patient's underlying history of hypothyroid, hypertension, COPD, chronic anticoagulation. Patient states he fell hitting his head, positive loss of consciousness at that time. Patient complains of neck pain, head pain. Fall took place on September 20 according to the notes. Nothing makes his pain worse, nothing makes his pain better. Patient denies any chest pain, shortness breath, nausea, vomiting. He does complain of some headache. Patient denies any abdominal pain, visual ch roland. Labs and imaging reviewed, sodium mildly low at 129, creatinine 1.4, white blood cell count within normal limits, hemoglobin 10.6 CT head and neck reveal no evidence of acute intracranial process, patient has no evidence of fracture appreciated. Son was at bedside and is questioning athlete's feet evaluation and concern for some diarrhea this been ongoing. Discussed findings with patient/family, recommend dc back to detention with OTC regarding athletes feet and diarrhea Return precautions provided Dragon Disclaimer Dragon Disclaimer This electronic medical record was generated, in whole or in part, using a voice recognition dictation system. Departure Departure Impression: Primary Impression: Fall Additional Impressions: Hyponatremia Diarrhea Disposition: 03 TRANSFER SNF Condition: STABLE Referrals: JACOB SOUTH MD (PCP) Patient Instructions: Diarrhea, Fall Prevention and Home Safety, [id number], Hyponatremia, [id number] Additional Instructions: Recommend follow up with PCP 3 - 5 days Return to the ER with worsening symptoms, intractable pain, fever, altered mental status Tylenol/Motrin as needed for pain Ok to use over the counter medications for diarrhea (immodium) Ok to use over the counter medications for athlete's feet Problem Qualifiers Primary Impression: Fall Encounter type: initial encounter Qualified Codes: W19.XXXA - Unspecified fall, initial encounter Additional Impressions: Diarrhea Diarrhea type: unspecified type Qualified Codes: R19.7 - Diarrhea, unspecified MEG KAM MD Sep 28, 2019 18:23
[2019-09-28 18:28] LABS: BASO # 0.1 x10^3/uL (0.0-0.2); BASO % 1 % (0-3); EOS # 0.2 x10^3/uL (0.0-0.7); EOS % 2 % (0-3); HEMOGLOBIN 10.6 g/dL (13.0-17.5); LYMPH # 2.3 x10^3/uL (1.0-4.8); LYMPH % 28 % (24-48); MEAN CORPUSCULAR HEMOGLOBIN 31 pg (25-35); MEAN CORPUSCULAR HGB CONC 35 g/dL (31-37); MEAN CORPUSCULAR VOLUME 87 fL (79-100); MONO # 1.2 x10^3/uL (0.0-1.1); MONO % 14 % (0-9); NEUT # 4.6 x10^3/uL (1.8-7.7); NEUT % 55 % (31-73); PLATELET COUNT 179 x10^3/uL (140-400); RED BLOOD COUNT 3.45 x10^6/uL (4.30-5.70); RED CELL DISTRIBUTION WIDTH 14.1 % (11.5-14.5); WHITE BLOOD COUNT 8.3 x10^3/uL (4.0-11.0)
[2019-09-28 18:29] LABS: BILIRUBIN,URINE NEGATIVE (NEG); CLARITY,URINE CLOUDY; COLOR,URINE YELLOW; NITRITE,URINE NEGATIVE (NEG); PROTEIN,URINE NEGATIVE (NEG-TRACE)
[2019-09-28] MEDS ORDERED: TETANUS AND DIPHTHERIA TOX/PF 0.5 ML DISP.SYRIN. VAX IM ONE (18:30)
[2019-09-28 18:33] LABS: BACTERIA,URINE 0 /HPF (0-FEW); SQUAMOUS EPITHELIAL CELL,UR FEW /LPF
[2019-09-28 18:34] LABS: RBC,URINE OCC /HPF (0-2)
[2019-09-28 18:40] LABS: CALCIUM 8.8 mg/dL (8.5-10.1); CREATININE 1.4 mg/dL (0.7-1.3); GFR 47.8; POTASSIUM 4.8 mmol/L (3.5-5.1)
[2019-09-28 18:46] LABS: ALBUMIN 3.2 g/dL (3.4-5.0); ALBUMIN/GLOBULIN RATIO 0.9 (1.0-1.7); TOTAL BILIRUBIN 0.4 mg/dL (0.2-1.0); TOTAL PROTEIN 6.7 g/dL (6.4-8.2)
--- NOTE | 2019-09-28 18:54 | RAD ---
Examination: CT HEAD AND CERVICAL SPINE WO History: Loss of consciousness, on chronic anticoagulation, fall Comparison/Correlation: 04/13/2018 CT head without contrast Findings: Axial images of the head and cervical spinal were obtained without contrast. Sagittal and coronal reformatted images of the cervical spine were obtained. Axial images of the head demonstrate atrophy. Chronic ischemic changes in white matter noted. Old right thalamic lacunar infarct is present. No intracranial hemorrhage, midline shift, or mass effect. Small old cerebellar infarcts are suggested. Atlantoaxial joint degenerative remodeling is present. Severe disc space narrowing at C2-3 is present. Severe C5-C7 disc space narrowing is present. Moderate to severe C7-T1 disc space narrowing is present. Facet joint degenerative hypertrophy bilaterally is present at multiple levels throughout the cervical spine. No significant malalignment. Minimal fluid in the right sphenoid sinus is evident. Visualized soft tissues of the neck are unremarkable. Impression: No intracranial hemorrhage. Degenerative changes of the cervical spine. No fracture or suspicious malalignment. PQRS Compliance Statement: One or more of the following individualized dose reduction techniques were utilized for this examination: 1. Automated exposure control 2. Adjustment of the mA and/or kV according to patient size 3. Use of iterative reconstruction technique Electronically signed by: Felipe Acosta MD (09/28/2019 6:51 PM) [facility]
[2019-09-28 19:23] VITALS: BP 180/82
--- NOTE | 2019-09-29 07:14 | EKG ---
[facility] [address] [place] [address] Test Date: 2019-09-28 Test Time: 18:41:29 Pat Name: MURRAY ROE Department: Room: Gender: M Shift Boss: : 1930 Requested By: MEG KAM Order Number: [id number] Reading MD: Measurements Intervals [place] Rate: 67 P: [place]: QRS: 169 QRSD: 154 T: -11 QT: 446 QTc: 474 Interpretive Statements ATRIAL FLUTTER ABNORMAL RIGHT AXIS DEVIATION LOW LIMB LEAD VOLTAGE NON SPECIFIC INTRAVENTRICULAR BLOCK QRS(T) CONTOUR ABNORMALITY CONSIDER ANTEROLATERAL INFARCT CONSIDER INFERIOR MYOCARDIAL DAMAGE ABNORMAL ECG RI6.01 No previous ECG available for comparison
== END 2019-09-28 20:00 ==
LOC: ER 18:04
DX: S00.01XA Abrasion of scalp, initial encounter (principal); E87.1 Hypo-osmolality and hyponatremia; R19.7 Diarrhea, unspecified; M54.2 Cervicalgia; M54.9 Dorsalgia, unspecified; I48.91 Unspecified atrial fibrillation; J44.9 Chronic obstructive pulmonary disease, unspecified; E78.00 Pure hypercholesterolemia, unspecified; I25.10 Atherosclerotic heart disease of native coronary artery without angina pectoris; I11.9 Hypertensive heart disease without heart failure; E03.9 Hypothyroidism, unspecified; G43.909 Migraine, unspecified, not intractable, without status migrainosus; F03.90 Unspecified dementia, unspecified severity, without behavioral disturbance, psychotic disturbance, mood disturbance, and anxiety; I71.4 Abdominal aortic aneurysm, without rupture; Z90.89 Acquired absence of other organs; Z98.890 Other specified postprocedural states; Z95.0 Presence of cardiac pacemaker; Z79.01 Long term (current) use of anticoagulants; W18.09XA Striking against other object with subsequent fall, initial encounter; Y93.89 Activity, other specified; Y92.89 Other specified places as the place of occurrence of the external cause; Y99.8 Other external cause status
CPT/HCPCS: 36415; 70450; 72125; 80053; 81001; 85025; 87086; 90471; 90714; 93005; 99285-25

== ENCOUNTER 2020-04-05 09:31 | Emergency (ER) | payer MEDICARE, OTHER ==
[~2020-04-05] VITALS: Ht 172.7 cm; Wt 68.1 kg
[2020-04-05 10:57] LABS: BASO # 0.1 x10^3/uL (0.0-0.2); BASO % 1 % (0-3); EOS # 0.1 x10^3/uL (0.0-0.7); EOS % 1 % (0-3); HEMATOCRIT 34.4 % (39.0-53.0); HEMOGLOBIN 11.9 g/dL (13.0-17.5); LYMPH # 1.4 x10^3/uL (1.0-4.8); LYMPH % 18 % (24-48); MEAN CORPUSCULAR HEMOGLOBIN 30 pg (25-35); MEAN CORPUSCULAR HGB CONC 35 g/dL (31-37); MEAN CORPUSCULAR VOLUME 88 fL (79-100); MONO # 0.6 x10^3/uL (0.0-1.1); MONO % 8 % (0-9); NEUT # 5.6 x10^3/uL (1.8-7.7); NEUT % 72 % (31-73); PLATELET COUNT 131 x10^3/uL (140-400); RED BLOOD COUNT 3.93 x10^6/uL (4.30-5.70); RED CELL DISTRIBUTION WIDTH 13.8 % (11.5-14.5); WHITE BLOOD COUNT 7.8 x10^3/uL (4.0-11.0)
[2020-04-05 11:11] LABS: CREATININE 1.3 mg/dL (0.7-1.3); GFR 52.1; POTASSIUM 4.4 mmol/L (3.5-5.1)
[2020-04-05 11:15] LABS: CALCIUM 8.7 mg/dL (8.5-10.1); PROTHROMBIN TIME PATIENT 14.3 SEC (11.7-14.0)
--- NOTE | 2020-04-05 11:21 | RAD ---
EXAM: CT Head without IV contrast INDICATION: Reason: fall / Spl. Instructions: / History: TECHNIQUE: Multi-detector row CT images were obtained of the head without the use of IV contrast. All CT scans performed at this facility utilize dose optimization techniques as appropriate to the exam, including the following: Automated exposure control and adjustment of the mA and/or KV according to patient size (this includes techniques or standardized protocols for targeted exams where dose is indication/reason for exam). COMPARISON: 09-28-19 FINDINGS: BRAIN PARENCHYMA: No evidence of acute intraparenchymal hemorrhage or infarct. Generalized parenchymal volume loss and chronic right thalamic lacunar infarct are unchanged. VENTRICLES & EXTRA-AXIAL SPACES: Ventricles are within normal limits. Basilar cisterns are patent. No pathologic extra-axial fluid collection or mass. ORBITS: Orbital contents are unremarkable. SINUSES: Visualized paranasal sinuses and mastoid air cells are clear. OSSEOUS & SOFT TISSUES: Calvarium and skull base are intact. IMPRESSION: No acute intracranial pathology. EXAM: CT Cervical Spine without IV contrast INDICATION: Reason: fall / Spl. Instructions: / History: TECHNIQUE: Multi-detector row CT images were obtained through the cervical spine without the use of IV contrast. Post-processing sagittal and coronal reconstructed images were obtained for interpretation. All CT scans performed at this facility utilize dose optimization techniques as appropriate to the exam, including the following: Automated exposure control and adjustment of the mA and/or KV according to patient size (this includes techniques or standardized protocols for targeted exams where dose is indication/reason for exam). COMPARISON: C-spine CT 09/20/2019 FINDINGS: CRANIOCERVICAL JUNCTION: Unremarkable. ALIGNMENT: Stable subtle anterolisthesis of C4 on C5, and minimal widening of the interspinous interval between C5 and C6. OSSEOUS: No evidence of fracture or bone destruction. DISC SPACES: Multilevel disc degenerative spondylosis, most conspicuous at C5-C6 and C6-C7, without significant interval change. FACET JOINTS: Multilevel bilateral facet hypertrophic change. SPINAL CANAL: Unremarkable. NEUROFORAMINA: Unremarkable. SOFT TISSUES: Unremarkable. IMPRESSION: No acute traumatic findings in the cervical spine. Electronically signed by: Fabiana Montenegro MD (04/05/2020 11:18 AM) [id number]
--- NOTE | 2020-04-05 11:46 | RAD ---
EXAM: CT Chest, Abdomen, and Pelvis without IV contrast INDICATION: Reason: fall / Spl. Instructions: / History: TECHNIQUE: Multi-detector row CT images were acquired from the thoracic inlet through the ischial tuberosities without the use of IV contrast. Sagittal and coronal images were acquired from the transaxial data. All CT scans performed at this facility utilize dose optimization techniques as appropriate to the exam, including the following: Automated exposure control and adjustment of the mA and/or KV according to patient size (this includes techniques or standardized protocols for targeted exams where dose is indication/reason for exam). ORAL CONTRAST: Not administered COMPARISON: None FINDINGS: The absence of IV contrast limits evaluation of soft tissue pathology. CHEST: CARDIOVASCULAR: Extensive atherosclerotic calcifications with normal caliber thoracic aorta. Dense multivessel coronary calcifications. Left chest multichamber pacemaker. Normal heart size with mild enlargement of the left ventricle. MEDIASTINUM & THAD: No adenopathy or masses. LUNGS: Mild atelectatic changes in the right lower lobe. Respiratory motion artifact degrades detail but no significant abnormality otherwise noted. PLEURAL SPACE: No pleural effusions or pneumothorax. OSSEOUS & SOFT TISSUE: Acute nondisplaced posterior lateral right eighth rib fracture. ABDOMEN/PELVIS: There is respiratory motion artifact that degrades detail. LIVER: Unremarkable BILIARY SYSTEM: Gallbladder is unremarkable. Bile ducts are not dilated. PANCREAS: Unremarkable SPLEEN: Unremarkable ADRENALS: Unremarkable KIDNEYS & URETERS: This is bilateral perirenal soft tissue stranding that could reflect chronic kidney disease or dehydration. BLADDER: Unremarkable REPRODUCTIVE ORGANS: Unremarkable GASTROINTESTINAL: The stomach, small bowel, and colon are unremarkable. The appendix is normal. MESENTERY/PERITONEUM/RETROPERITONEUM: Unremarkable VASCULAR: Ectasia of the infrarenal abdominal aorta is present to 4.6 cm AP diameter by 4.1 cm transverse diameter. No periaortic soft tissue stranding suspicious for aneurysmal leak or rupture. LYMPH NODES: No adenopathy OSSEOUS & SOFT TISSUES: Unremarkable IMPRESSION: 1. Acute nondisplaced posterior lateral right eighth rib fracture. No pneumothorax or hemothorax. 2. No acute traumatic findings in the abdomen or pelvis 3. Incidental 4.6 cm infrarenal abdominal aortic aneurysm without evidence of leak or rupture. EXAM: CT Thoracic Spine without IV contrast INDICATION: Reason: fall / Spl. Instructions: / History: TECHNIQUE: Multi-detector row CT images were obtained through the thoracic spine without the use of IV contrast. Post-processing sagittal and coronal reconstructed images were obtained for interpretation. All CT scans performed at this facility utilize dose optimization techniques as appropriate to the exam, including the following: Automated exposure control and adjustment of the mA and/or KV according to patient size (this includes techniques or standardized protocols for targeted exams where dose is indication/reason for exam). COMPARISON: None FINDINGS: ALIGNMENT: Alignment is within normal limits. OSSEOUS: No evidence of fracture or bone destruction. DISC SPACES: Unremarkable. FACET JOINTS: Unremarkable. SPINAL CANAL: Unremarkable. NEUROFORAMINA: Unremarkable. SOFT TISSUES: Extensive arterial calcifications in the aorta. IMPRESSION: No acute traumatic findings in the thoracic spine. 2. Advanced atherosclerotic changes in the aorta EXAM: CT Lumbar Spine without IV contrast INDICATION: Reason: fall / Spl. Instructions: / History: TECHNIQUE: Multi-detector row CT images were obtained through the lumbar spine without the use of IV contrast. Post-processing sagittal and coronal reconstructed images were obtained for interpretation. All CT scans performed at this facility utilize dose optimization techniques as appropriate to the exam, including the following: Automated exposure control and adjustment of the mA and/or KV according to patient size (this includes techniques or standardized protocols for targeted exams where dose is indication/reason for exam). COMPARISON: None FINDINGS: The lowest fully formed disc is referred to as the L5-S1 level. ALIGNMENT: Mild rightward convexity scoliotic curvature, apex at L2. No listhesis. OSSEOUS: No evidence of fracture or bone destruction. DISC SPACES: Degenerative change with partial fusion at L4-L5 and L5-S1. FACET JOINTS: Unremarkable. SPINAL CANAL: Unremarkable. NEUROFORAMINA: Unremarkable. SOFT TISSUES: Unremarkable. IMPRESSION: No acute traumatic findings in the lumbar spine on CT. PROCEDURE: PELVIS, CT THORACIC SPINE RECONSTRUCT, CT CHEST ABDOMEN PELVIS WO, CT LUMBAR SPINE RECONSTRUCTION STUDY DATE: 04/05/2020 CLINICAL INDICATION / HISTORY: Reason: fall / Spl. Instructions: / History: . TECHNIQUE:Single AP view of the pelvis was obtained. COMPARISON: CT pelvis same day FINDINGS: The osseous structures are normally mineralized. There is normal bony alignment present with the femoral heads well-seated within the acetabuli. There is no evidence of acute fracture or dislocation identified. The overlying soft tissues show surgical clips in the left groin.. IMPRESSION: Unremarkable examination of the pelvis. Electronically signed by: Fabiana Montenegro MD (04/05/2020 11:43 AM) [id number]
--- NOTE | 2020-04-05 11:54 | PHYS DOC ---
Past Medical History Past Medical History: A-Fib, CAD, COPD, Dementia, Depression, High Cholesterol, Heart Disease, Hypertension, Hypothyroid, Migraines, Renal Disease, Other Additional Past Medical Histor: prostate problems possible CA; sleep apnea; Abd aortic aneurysm Past Surgical History: Appendectomy, Pacemaker, Other Additional Past Surgical Histo: back; veins in legs; hernia Smoking Status: Former Smoker Alcohol Use: None Drug Use: None General Adult EDM: Chief Complaint: MECHANICAL FALL HPI: HPI: The history was obtained from the patient and EMS. Patient is a 81-year-old male with PMH multiple comorbidities including dementia who presents with a chief complaint of right flank pain. He does tell me that he experienced mechanical fall earlier today. He denies any chest pain or shortness of breath prior to falling. Per EMS the fall was unwitnessed. They state that caregivers at his facility at [facility] found him down in his room. He does take Eliquis for history of A. fib. He has been amatory since t he fall. He states his greatest complaint is right flank pain that seems to be worse when he breathes in. He does note some bruising to his right flank. No other complaints Review of Systems: Review of Systems: Constitutional: Denies fever or chills. [] Eyes: Denies change in visual acuity. [] HENT: Denies nasal congestion or sore throat. [] Respiratory: Denies cough or shortness of breath. [] Cardiovascular: Denies chest pain or edema. [] GI: Denies abdominal pain, nausea, vomiting, bloody stools or diarrhea. [] : Denies dysuria. [] Musculoskeletal: Positive for fall and right flank pain Integument: Denies rash. [] Neurologic: Denies headache, focal weakness or sensory changes. [] Endocrine: Denies polyuria or polydipsia. [] Lymphatic: Denies swollen glands. [] Psychiatric: Denies depression or anxiety. [] Heart Score: Risk Factors: Risk Factors: DM, Current or recent (<one month) smoker, HTN, HLP, family history of CAD, obesity. Risk Scores: Score 0 - 3: 2.5% MACE over next 6 weeks - Discharge Home Score 4 - 6: 20.3% MACE over next 6 weeks - Admit for Clinical Observation Score 7 - 10: 72.7% MACE over next 6 weeks - Early Invasive Strategies Allergies: Allergies: Allergies Coded Allergies Type Severity Reaction Last Updated Verified No Known Medication Allergies Allergy Unknown 02/05/18 Yes Uncoded Allergies Type Severity Reaction Last Updated Verified NON MRI PACEMAKER Allergy Unknown 10/08/17 Physical Exam: PE: Constitutional: Well developed, well nourished, no acute distress, non-toxic appearance. [] HENT: Normocephalic, atraumatic, bilateral external ears normal, oropharynx moist, no oral exudates, nose normal. [] Eyes: PERRLA, EOMI, conjunctiva normal, no discharge. [] Neck: Normal range of motion, no tenderness, supple, no stridor. [] Cardiovascular:Heart rate regular rhythm, no murmur [] Lungs & Thorax: Bilateral breath sounds clear to auscultation [] Abdomen: soft, no tenderness, no masses, no pulsatile masses. [] Skin: Warm, dry, no erythema, no rash. [] Back: Slight ecchymosis overlying the right flank area over seventh or ninth ribs. Tenderness to palpation noted. Extremities: No tenderness, no cyanosis, no clubbing, ROM intact, no edema. [] Neurologic: Alert and oriented X 2 (person and place only), normal motor function, normal sensory function, no focal deficits noted. [] Psychologic: Affect normal, judgement normal, mood normal. [] Current Patient Data: Labs: Laboratory Tests Test 04/05/20 10:40 White Blood Count 7.8 x10^3/uL (4.0-11.0) Red Blood Count 3.93 x10^6/uL (4.30-5.70) L Hemoglobin 11.9 g/dL (13.0-17.5) L Hematocrit 34.4 % (39.0-53.0) L Mean Corpuscular Volume 88 fL (79-100) Mean Corpuscular Hemoglobin 30 pg (25-35) Mean Corpuscular Hemoglobin Concent 35 g/dL (31-37) Red Cell Distribution Width 13.8 % (11.5-14.5) Platelet Count 131 x10^3/uL (140-400) L Neutrophils (%) (Auto) 72 % (31-73) Lymphocytes (%) (Auto) 18 % (24-48) L Monocytes (%) (Auto) 8 % (0-9) Eosinophils (%) (Auto) 1 % (0-3) Basophils (%) (Auto) 1 % (0-3) Neutrophils # (Auto) 5.6 x10^3/uL (1.8-7.7) Lymphocytes # (Auto) 1.4 x10^3/uL (1.0-4.8) Monocytes # (Auto) 0.6 x10^3/uL (0.0-1.1) Eosinophils # (Auto) 0.1 x10^3/uL (0.0-0.7) Basophils # (Auto) 0.1 x10^3/uL (0.0-0.2) Prothrombin Time 14.3 SEC (11.7-14.0) H Prothrombin Time INR 1.2 (0.8-1.1) H Activated Partial Thromboplast Time 36 SEC (24-38) Sodium Level 133 mmol/L (136-145) L Potassium Level 4.4 mmol/L (3.5-5.1) Chloride Level 100 mmol/L (98-107) Carbon Dioxide Level 20 mmol/L (21-32) L Anion Gap 13 (6-14) Blood Urea Nitrogen 19 mg/dL (8-26) Creatinine 1.3 mg/dL (0.7-1.3) Estimated GFR (Cockcroft-Gault) 52.1 Glucose Level 142 mg/dL (70-99) H Calcium Level 8.7 mg/dL (8.5-10.1) Laboratory Tests 04/05/20 10:40 Laboratory Tests 04/05/20 10:40 Vital Signs: Vital Signs Date Time Temp Pulse Resp B/P (MAP) Pulse Ox O2 Delivery O2 Flow Rate FiO2 04/05/20 09:41 97.7 80 24 197/81 (119) 97 Room Air 97.7 EKG: EKG: [] Radiology/Procedures: Radiology/Procedures: [facility] [address] [place] [address] IMAGING REPORT Signed PATIENT: MURRAY ROE ACCOUNT: [id number] : 1930 LOCATION: ER AGE: 89 SEX: M EXAM STATUS: REG ER ORD. PHYSICIAN: ANDREW KATE DO REASON: fall PROCEDURE: CT HEAD AND CERVICAL SPINE WO EXAM: CT Head without IV contrast INDICATION: Reason: fall / Spl. Instructions: / History: TECHNIQUE: Multi-detector row CT images were obtained of the head without the use of IV contrast. All CT scans performed at this facility utilize dose optimization techniques as appropriate to the exam, including the following: Automated exposure control and adjustment of the mA and/or KV according to patient size (this includes techniques or standardized protocols for targeted exams where dose is indication/reason for exam). COMPARISON: 09-28-19 FINDINGS: BRAIN PARENCHYMA: No evidence of acute intraparenchymal hemorrhage or infarct. Generalized parenchymal volume loss and chronic right thalamic lacunar infarct are unchanged. VENTRICLES & EXTRA-AXIAL SPACES: Ventricles are within normal limits. Basilar cisterns are patent. No pathologic extra-axial fluid collection or mass. ORBITS: Orbital contents are unremarkable. SINUSES: Visualized paranasal sinuses and mastoid air cells are clear. OSSEOUS & SOFT TISSUES: Calvarium and skull base are intact. IMPRESSION: No acute intracranial pathology. EXAM: CT Cervical Spine without IV contrast INDICATION: Reason: fall / Spl. Instructions: / History: TECHNIQUE: Multi-detector row CT images were obtained through the cervical spine without the use of IV contrast. Post-processing sagittal and coronal reconstructed images were obtained for interpretation. All CT scans performed at this facility utilize dose optimization techniques as appropriate to the exam, including the following: Automated exposure control and adjustment of the mA and/or KV according to patient size (this includes techniques or standardized protocols for targeted exams where dose is indication/reason for exam). COMPARISON: C-spine CT 09/20/2019 FINDINGS: CRANIOCERVICAL JUNCTION: Unremarkable. ALIGNMENT: Stable subtle anterolisthesis of C4 on C5, and minimal widening of the interspinous interval between C5 and C6. OSSEOUS: No evidence of fracture or bone destruction. DISC SPACES: Multilevel disc degenerative spondylosis, most conspicuous at C5-C6 and C6-C7, without significant interval change. FACET JOINTS: Multilevel bilateral facet hypertrophic change. SPINAL CANAL: Unremarkable. NEUROFORAMINA: Unremarkable. SOFT TISSUES: Unremarkable. IMPRESSION: No acute traumatic findings in the cervical spine. Electronically signed by: Micaela Montenegro MD (04/05/2020 11:18 AM) [id number] DICTATED and SIGNED BY: MICAELA MONTENEGRO MD DATE: 04/05/[address] [facility] [address] [place] [address] IMAGING REPORT Signed PATIENT: MURRAY ROE ACCOUNT: [id number] : 1930 LOCATION: ER AGE: 89 SEX: M EXAM STATUS: REG ER ORD. PHYSICIAN: ANDREW KATE DO REASON: PROCEDURE: CT LUMBAR SPINE RECONSTRUCTION EXAM: CT Chest, Abdomen, and Pelvis without IV contrast INDICATION: Reason: fall / Spl. Instructions: / History: TECHNIQUE: Multi-detector row CT images were acquired from the thoracic inlet through the ischial tuberosities without the use of IV contrast. Sagittal and coronal images were acquired from the transaxial data. All CT scans performed at this facility utilize dose optimization techniques as appropriate to the exam, including the following: Automated exposure control and adjustment of the mA and/or KV according to patient size (this includes techniques or standardized protocols for targeted exams where dose is indication/reason for exam). ORAL CONTRAST: Not administered COMPARISON: None FINDINGS: The absence of IV contrast limits evaluation of soft tissue pathology. CHEST: CARDIOVASCULAR: Extensive atherosclerotic calcifications with normal caliber thoracic aorta. Dense multivessel coronary calcifications. Left chest multichamber pacemaker. Normal heart size with mild enlargement of the left ventricle. MEDIASTINUM & THAD: No adenopathy or masses. LUNGS: Mild atelectatic changes in the right lower lobe. Respiratory motion artifact degrades detail but no significant abnormality otherwise noted. PLEURAL SPACE: No pleural effusions or pneumothorax. OSSEOUS & SOFT TISSUE: Acute nondisplaced posterior lateral right eighth rib fracture. ABDOMEN/PELVIS: There is respiratory motion artifact that degrades detail. LIVER: Unremarkable BILIARY SYSTEM: Gallbladder is unremarkable. Bile ducts are not dilated. PANCREAS: Unremarkable SPLEEN: Unremarkable ADRENALS: Unremarkable KIDNEYS & URETERS: This is bilateral perirenal soft tissue stranding that could reflect chronic kidney disease or dehydration. BLADDER: Unremarkable REPRODUCTIVE ORGANS: Unremarkable GASTROINTESTINAL: The stomach, small bowel, and colon are unremarkable. The appendix is normal. MESENTERY/PERITONEUM/RETROPERITONEUM: Unremarkable VASCULAR: Ectasia of the infrarenal abdominal aorta is present to 4.6 cm AP diameter by 4.1 cm transverse diameter. No periaortic soft tissue stranding suspicious for aneurysmal leak or rupture. LYMPH NODES: No adenopathy OSSEOUS & SOFT TISSUES: Unremarkable IMPRESSION: 1. Acute nondisplaced posterior lateral right eighth rib fracture. No pneumothorax or hemothorax. 2. No acute traumatic findings in the abdomen or pelvis 3. Incidental 4.6 cm infrarenal abdominal aortic aneurysm without evidence of leak or rupture. EXAM: CT Thoracic Spine without IV contrast INDICATION: Reason: fall / Spl. Instructions: / History: TECHNIQUE: Multi-detector row CT images were obtained through the thoracic spine without the use of IV contrast. Post-processing sagittal and coronal reconstructed images were obtained for interpretation. All CT scans performed at this facility utilize dose optimization techniques as appropriate to the exam, including the following: Automated exposure control and adjustment of the mA and/or KV according to patient size (this includes techniques or standardized protocols for targeted exams where dose is indication/reason for exam). COMPARISON: None FINDINGS: ALIGNMENT: Alignment is within normal limits. OSSEOUS: No evidence of fracture or bone destruction. DISC SPACES: Unremarkable. FACET JOINTS: Unremarkable. SPINAL CANAL: Unremarkable. NEUROFORAMINA: Unremarkable. SOFT TISSUES: Extensive arterial calcifications in the aorta. IMPRESSION: No acute traumatic findings in the thoracic spine. 2. Advanced atherosclerotic changes in the aorta EXAM: CT Lumbar Spine without IV contrast INDICATION: Reason: fall / Spl. Instructions: / History: TECHNIQUE: Multi-detector row CT images were obtained through the lumbar spine without the use of IV contrast. Post-processing sagittal and coronal reconstructed images were obtained for interpretation. All CT scans performed at this facility utilize dose optimization techniques as appropriate to the exam, including the following: Automated exposure control and adjustment of the mA and/or KV according to patient size (this includes techniques or standardized protocols for targeted exams where dose is indication/reason for exam). COMPARISON: None FINDINGS: The lowest fully formed disc is referred to as the L5-S1 level. ALIGNMENT: Mild rightward convexity scoliotic curvature, apex at L2. No listhesis. OSSEOUS: No evidence of fracture or bone destruction. DISC SPACES: Degenerative change with partial fusion at L4-L5 and L5-S1. FACET JOINTS: Unremarkable. SPINAL CANAL: Unremarkable. NEUROFORAMINA: Unremarkable. SOFT TISSUES: Unremarkable. IMPRESSION: No acute traumatic findings in the lumbar spine on CT. PROCEDURE: PELVIS, CT THORACIC SPINE RECONSTRUCT, CT CHEST ABDOMEN PELVIS WO, CT LUMBAR SPINE RECONSTRUCTION STUDY DATE: 04/05/2020 CLINICAL INDICATION / HISTORY: Reason: fall / Spl. Instructions: / History: . TECHNIQUE:Single AP view of the pelvis was obtained. COMPARISON: CT pelvis same day FINDINGS: The osseous structures are normally mineralized. There is normal bony alignment present with the femoral heads well-seated within the acetabuli. There is no evidence of acute fracture or dislocation identified. The overlying soft tissues show surgical clips in the left groin.. IMPRESSION: Unremarkable examination of the pelvis. Electronically signed by: Micaela Montenegro MD (04/05/2020 11:43 AM) [id number] DICTATED and SIGNED BY: MICAELA MONTENEGRO MD DATE: 04/05/20 1143 [][facility] [address] [place] [address] IMAGING REPORT Signed PATIENT: MURRAY ROE ACCOUNT: [id number] : 1930 LOCATION: ER AGE: 89 SEX: M EXAM STATUS: REG ER ORD. PHYSICIAN: ANDREW KATE DO REASON: fall on blood thinners. R flank pain PROCEDURE: CT CHEST ABDOMEN PELVIS WO EXAM: CT Chest, Abdomen, and Pelvis without IV contrast INDICATION: Reason: fall / Spl. Instructions: / History: TECHNIQUE: Multi-detector row CT images were acquired from the thoracic inlet through the ischial tuberosities without the use of IV contrast. Sagittal and coronal images were acquired from the transaxial data. All CT scans performed at this facility utilize dose optimization techniques as appropriate to the exam, including the following: Automated exposure control and adjustment of the mA and/or KV according to patient size (this includes techniques or standardized protocols for targeted exams where dose is indication/reason for exam). ORAL CONTRAST: Not administered COMPARISON: None FINDINGS: The absence of IV contrast limits evaluation of soft tissue pathology. CHEST: CARDIOVASCULAR: Extensive atherosclerotic calcifications with normal caliber thoracic aorta. Dense multivessel coronary calcifications. Left chest multichamber pacemaker. Normal heart size with mild enlargement of the left ventricle. MEDIASTINUM & THAD: No adenopathy or masses. LUNGS: Mild atelectatic changes in the right lower lobe. Respiratory motion artifact degrades detail but no significant abnormality otherwise noted. PLEURAL SPACE: No pleural effusions or pneumothorax. OSSEOUS & SOFT TISSUE: Acute nondisplaced posterior lateral right eighth rib fracture. ABDOMEN/PELVIS: There is respiratory motion artifact that degrades detail. LIVER: Unremarkable BILIARY SYSTEM: Gallbladder is unremarkable. Bile ducts are not dilated. PANCREAS: Unremarkable SPLEEN: Unremarkable ADRENALS: Unremarkable KIDNEYS & URETERS: This is bilateral perirenal soft tissue stranding that could reflect chronic kidney disease or dehydration. BLADDER: Unremarkable REPRODUCTIVE ORGANS: Unremarkable GASTROINTESTINAL: The stomach, small bowel, and colon are unremarkable. The appendix is normal. MESENTERY/PERITONEUM/RETROPERITONEUM: Unremarkable VASCULAR: Ectasia of the infrarenal abdominal aorta is present to 4.6 cm AP diameter by 4.1 cm transverse diameter. No periaortic soft tissue stranding suspicious for aneurysmal leak or rupture. LYMPH NODES: No adenopathy OSSEOUS & SOFT TISSUES: Unremarkable IMPRESSION: 1. Acute nondisplaced posterior lateral right eighth rib fracture. No pneumothorax or hemothorax. 2. No acute traumatic findings in the abdomen or pelvis 3. Incidental 4.6 cm infrarenal abdominal aortic aneurysm without evidence of leak or rupture. EXAM: CT Thoracic Spine without IV contrast INDICATION: Reason: fall / Spl. Instructions: / History: TECHNIQUE: Multi-detector row CT images were obtained through the thoracic spine without the use of IV contrast. Post-processing sagittal and coronal reconstructed images were obtained for interpretation. All CT scans performed at this facility utilize dose optimization techniques as appropriate to the exam, including the following: Automated exposure control and adjustment of the mA and/or KV according to patient size (this includes techniques or standardized protocols for targeted exams where dose is indication/reason for exam). COMPARISON: None FINDINGS: ALIGNMENT: Alignment is within normal limits. OSSEOUS: No evidence of fracture or bone destruction. DISC SPACES: Unremarkable. FACET JOINTS: Unremarkable. SPINAL CANAL: Unremarkable. NEUROFORAMINA: Unremarkable. SOFT TISSUES: Extensive arterial calcifications in the aorta. IMPRESSION: No acute traumatic findings in the thoracic spine. 2. Advanced atherosclerotic changes in the aorta EXAM: CT Lumbar Spine without IV contrast INDICATION: Reason: fall / Spl. Instructions: / History: TECHNIQUE: Multi-detector row CT images were obtained through the lumbar spine without the use of IV contrast. Post-processing sagittal and coronal reconstructed images were obtained for interpretation. All CT scans performed at this facility utilize dose optimization techniques as appropriate to the exam, including the following: Automated exposure control and adjustment of the mA and/or KV according to patient size (this includes techniques or standardized protocols for targeted exams where dose is indication/reason for exam). COMPARISON: None FINDINGS: The lowest fully formed disc is referred to as the L5-S1 level. ALIGNMENT: Mild rightward convexity scoliotic curvature, apex at L2. No listhesis. OSSEOUS: No evidence of fracture or bone destruction. DISC SPACES: Degenerative change with partial fusion at L4-L5 and L5-S1. FACET JOINTS: Unremarkable. SPINAL CANAL: Unremarkable. NEUROFORAMINA: Unremarkable. SOFT TISSUES: Unremarkable. IMPRESSION: No acute traumatic findings in the lumbar spine on CT. PROCEDURE: PELVIS, CT THORACIC SPINE RECONSTRUCT, CT CHEST ABDOMEN PELVIS WO, CT LUMBAR SPINE RECONSTRUCTION STUDY DATE: 04/05/2020 CLINICAL INDICATION / HISTORY: Reason: fall / Spl. Instructions: / History: . TECHNIQUE:Single AP view of the pelvis was obtained. COMPARISON: CT pelvis same day FINDINGS: The osseous structures are normally mineralized. There is normal bony alignment present with the femoral heads well-seated within the acetabuli. There is no evidence of acute fracture or dislocation identified. The overlying soft tissues show surgical clips in the left groin.. IMPRESSION: Unremarkable examination of the pelvis. Electronically signed by: Micaela Montenegro MD (04/05/2020 11:43 AM) [id number] DICTATED and SIGNED BY: MICAELA MONTENEGRO MD DATE: 04/05/20 1143 Course & Med Decision Making: Course & Med Decision Making Pertinent Labs and Imaging studies reviewed. (See chart for details) Patient is a pleasant 89-year-old male who presents with chief complaint of right flank pain status post non-syncopal fall. Initial vital signs unremarkable. Physical exam noted above. CT imaging was obtained. Patient does have a nondisplaced right lateral rib fracture. No other associated traumatic findings were visualized. Patient's pain was well controlled in the emergency department. I do feel is reasonable to discharge patient home to his assisted-living facility where he can be monitored closely. He is in agreement with this plan. Return precautions discussed and understood. Stable for discharge home. Dragon Disclaimer: Draggladys Disclaimer: This electronic medical record was generated, in whole or in part, using a voice recognition dictation system. Departure Departure Impression: Primary Impression: Right rib fracture Qualified Codes: S22.31XA - Fracture of one rib, right side, initial encounter for closed fracture Additional Impression: Fall Qualified Codes: W19.XXXA - Unspecified fall, initial encounter Disposition: HOME, SELF-CARE Condition: GOOD Referrals: ALEXANDRA BENTLEY MD (PCP) Patient Instructions: Rib Fracture Scripts Acetaminophen (TYLENOL) 325 Mg Tablet 1-2 TAB PO QID, #60 TAB 2 Refills Prov: ANDREW KATE DO 04/05/20 Lidocaine (Lidocaine) 1 Each Adh..patch 1 EACH TP PRN BID PRN for PAIN, #6 PATCH Prov: ANDREW KATE DO 04/05/20 Justicifation of Admission Dx: Justifications for Admission: Justification of Admission Dx: N/A ANDREW KATE DO Apr 05, 2020 11:54
[2020-04-05] MEDS: ACETAMINOPHEN 500 MG TABLET PO ONE (12:00)
[2020-04-05 12:02] LABS: SALIC < 2.8 mg/dL (2.8-20.0)
[2020-04-05 12:05] VITALS: BP 159/77
[2020-04-05] MEDS ORDERED: ACET325T9 PO (12:06)
[2020-04-05] MEDS ORDERED: LIDO1ADH63 TP (12:06)
[2020-04-05] MEDS ORDERED: LIDOCAINE (700MG/PATCH) PATCH. ONE (12:21)
[2020-04-05] MEDS: LIDOCAINE (700MG/PATCH) PATCH. TD SCH (12:24)
[2020-04-05] MEDS: HYDROcodone/APAP 5/325MG 1 TAB TABLET PO ONE (12:24)
--- NOTE | 2020-04-05 14:22 | EKG ---
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
[2020-04-05] MEDS ORDERED: PATCH REMOVAL. MC SCH (21:00)
== END 2020-04-05 13:06 | disposition home or self-care (01) ==
LOC: ER 09:31
DX: S22.31XA Fracture of one rib, right side, initial encounter for closed fracture (principal); R10.31 Right lower quadrant pain; I11.9 Hypertensive heart disease without heart failure; J44.9 Chronic obstructive pulmonary disease, unspecified; E78.00 Pure hypercholesterolemia, unspecified; F32.9 Major depressive disorder, single episode, unspecified; E03.9 Hypothyroidism, unspecified; G43.909 Migraine, unspecified, not intractable, without status migrainosus; Z90.89 Acquired absence of other organs; Z95.0 Presence of cardiac pacemaker; Z88.8 Allergy status to other drugs, medicaments and biological substances; Z87.891 Personal history of nicotine dependence; W18.39XA Other fall on same level, initial encounter; Y93.89 Activity, other specified; Y92.89 Other specified places as the place of occurrence of the external cause; Y99.8 Other external cause status
CPT/HCPCS: 36415; 70450; 71250; 72125; 72170; 74176; 80048; 80329; 85025; 85610; 85730; 93005; 99285; G0480

== ENCOUNTER 2020-04-07 11:21 | Emergency (ER) | payer MEDICARE, OTHER ==
[~2020-04-07] VITALS: Ht 170.2 cm; Wt 63.0 kg
[~2020-04-07 11:21] MED LIST changes: +LIDO1ADH63 TP
--- NOTE | 2020-04-07 12:19 | PHYS DOC ---
Past Medical History Past Medical History: A-Fib, CAD, COPD, Dementia, Depression, High Cholesterol, Heart Disease, Hypertension, Hypothyroid, Migraines, Renal Disease, Other Additional Past Medical Histor: prostate problems possible CA; sleep apnea; Abd aortic aneurysm Past Surgical History: Appendectomy, Pacemaker, Other Additional Past Surgical Histo: back; veins in legs; hernia Smoking Status: Former Smoker Alcohol Use: None Drug Use: None General Adult EDM: Chief Complaint: MECHANICAL FALL HPI: HPI: Patient is a 89 year old male who presents to the emergency department via EMS with complaints of increased pain in his right ribs after a fall. Patient states that he got up to go to the bathroom this morning and when he was coming back from the bathroom he fell. Patient states that he hit his head. He denies any head or neck pain. Patient reports that he was here 2 days ago for a previo us fall and was diagnosed with right rib fractures. Patient is very hard of hearing therefore HPI is limited. Staff at the skilled nursing reported that the fall was unwitnessed. Review of Systems: Review of Systems: Constitutional: Denies fatigue HENT: See HPI Respiratory: Denies shortness of breath; reports pain in right ribs with breathing. [] Cardiovascular: See HPI Musculoskeletal: Denies back pain or joint pain. [] Integument: Reports bruising to right ribs Neurologic: Denies headache; see HPI Psychiatric: Denies depression or anxiety. [] Heart Score: Risk Factors: Risk Factors: DM, Current or recent (<one month) smoker, HTN, HLP, family his tory of CAD, obesity. Risk Scores: Score 0 - 3: 2.5% MACE over next 6 weeks - Discharge Home Score 4 - 6: 20.3% MACE over next 6 weeks - Admit for Clinical Observation Score 7 - 10: 72.7% MACE over next 6 weeks - Early Invasive Strategies Allergies: Allergies: Allergies Coded Allergies Type Severity Reaction Last Updated Verified No Known Medication Allergies Allergy Unknown 02/05/18 Yes Uncoded Allergies Type Severity Reaction Last Updated Verified NON MRI PACEMAKER Allergy Unknown 10/08/17 Physical Exam: PE: Constitutional: Well developed, well nourished, no acute distress, non-toxic appearance. [] HENT: Normocephalic, atraumatic, bilateral external ears normal, nose normal. [] Eyes: PERRLA, EOMI, conjunctiva injected bilaterally, large amount of yellow- green drainage present in bilateral inner canthus concerning for conjunctivitis Neck: Normal range of motion, nontender, no stridor. [] Cardiovascular:Heart rate regular rhythm Lungs & Thorax: Respirations even and unlabored, no retractions, no respiratory distress; right anterior lateral rib tenderness to palpation, no subcutaneous emphysema Abdomen: soft, no tenderness Skin: Warm, dry, no erythema, no rash; dark purple bruising noted to right lateral anterior chest wall [] Extremities: No obvious deformity, no cyanosis, ROM intact, no edema. [] Neurologic: Alert and oriented X 3, no focal deficits noted. [] Psychologic: Affect normal, judgement normal, mood normal. [] EKG: EKG: [] Radiology/Procedures: Radiology/Procedures: PROCEDURE: CT HEAD AND CERVICAL SPINE WO CT head and cervical spine without contrast History: Fall during the night, hit head Technique: Noncontrast CT imaging was performed of the head and cervical spine. Multiplanar reconstruction images are submitted. Exposure: One or more of the following individualized dose reduction techniques were utilized for this examination: 1. Automated exposure control 2. Adjustment of the mA and/or kV according to patient size 3. Use of iterative reconstruction technique. Head CT Comparison: April 05, 2020 Findings: No acute extra-axial or parenchymal hemorrhage is identified. There is no significant intra-axial mass effect, midline shift, or extra-axial fluid collection. The stapleton-white differentiation of the major vascular territories is preserved. Ventricular size is proportionate to the sulcal spaces, again mild to moderate generalized supratentorial atrophy. 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 There is again mild ill-defined low-density of the supratentorial parenchyma bilaterally. The mastoid air cells and the visualized paranasal sinuses are aerated. There is no significant focal calvarial abnormality. Impression: 1. No acute intracranial abnormality is identified. 2. There is again generalized supratentorial atrophy. 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 Other ill-defined low-density of the supratentorial parenchyma is probably due to chronic microvascular ischemic disease in a patient of this age. Cervical spine CT Comparison: April 05, 2020 Findings: No acute cervical spine fracture is identified. Vertebral body stature is similar. Atlanto-axial distance is within normal limits, associated degenerative change. There is appropriate alignment of lateral masses of C1 relative to C2. Occipital condylar-C1 relationship is maintained. There is again segmental reversal of the lordotic curvature at C5-6. There is again advanced degenerative disc disease at C3-4 to C5-6, C6-7 and to lesser degree at C4-5. There is similar degree of minimal grade 1 anterior spondylolisthesis C4-5, negligible anterior spondylolisthesis C3-4. There is multilevel cervical facet degenerative change, some variable fusion such as on the left at C2-3. There is likely central canal stenosis about 8 to 9 mm at C4-5 and C3-4. There is fairly severe narrowing of the left C3-4 and C4-5 neural foramina, to lesser degree on the right at C3-3-4 and C4-5. There is atherosclerotic calcification of the carotid arteries in the neck bilaterally. Impression: 1. No acute cervical spine fracture is identified. 2. There is multilevel cervical degenerative disc disease. There is likely mild spinal stenosis greatest C3-4 and C4-5. There is neural foramina compromise greatest on the left at C3-4 and C4-5.[] PROCEDURE: RIBS RIGHT AND PA CHEST RIBS RIGHT AND PA CHEST History: Right rib pain after a fall Comparison: April 20, 2018 Findings: Single view of the chest and 4 additional views of the right ribs are submitted. There is again triple lead left electronic cardiac device. There is likely moderate size hiatal hernia. There is somewhat tortuous thoracic aorta, atherosclerotic calcification greater near arch. There is no pneumothorax, dependent pleural fluid, or lobar consolidation. There is minimally displaced right lateral ninth rib fracture, also likely right lateral seventh rib fracture. Impression: 1. There are right lateral seventh and ninth rib fractures. Course & Med Decision Making: Course & Med Decision Making Pertinent Labs and Imaging studies reviewed. (See chart for details) [] Dragon Disclaimer: Neelam Disclaimer: This electronic medical record was generated, in whole or in part, using a voice recognition dictation system. Departure Departure Impression: Primary Impression: Right rib fracture Qualified Codes: S22.41XA - Multiple fractures of ribs, right side, initial encounter for closed fracture Additional Impressions: Fall Qualified Codes: W19.XXXA - Unspecified fall, initial encounter Conjunctivitis Qualified Codes: H10.33 - Unspecified acute conjunctivitis, bilateral Disposition: HOME, SELF-CARE Condition: STABLE Referrals: ALEXANDRA BENTLEY MD (PCP) Patient Instructions: Conjunctivitis (Viral and Bacterial), Rib Fracture, [id number] Additional Instructions: Fill the prescription(s) and use as directed. Hold a pillow against the side of the broken ribs and take a deep breath and cough at least twice every hour while you are awake. Be sure to take Miralax daily as prescribed while taking the hydrocodone for pain. Apply warm, moist washcloths to eyes needed for comfort. Recommend use of baby shampoo to wash eyelids. Follow-up with your primary care doctor in 1-2 days. Return to the emergency room if your symptoms worsen. Scripts Polyethylene Glycol 3350 (MIRALAX) 119 Gm Powder 17 GM PO DAILY for 5 Days, #255 GM 0 Refills Drink 1 capful in 8 oz of water daily while taking hydrocodone for pain Prov: FLOR ACOSTA APRN 04/07/20 Erythromycin Base (Erythromycin) 1 Gm Oint...g. 0.5 INCH OU QID for 5 Days, #1 TUBE 0 Refills Prov: FLOR ACOSTA APRN 04/07/20 Hydrocodone Bit/Acetaminophen (HYDROCODONE-APAP 5-325 ) 1 Tab Tablet 1 TAB PO PRN TID PRN for SEVERE PAIN 7-10 for 3 Days, #10 TAB 0 Refills Prov: FLOR ACOSTA APRN 04/07/20 Justicifation of Admission Dx: Justifications for Admission: Justification of Admission Dx: N/A FLOR ACOSTA APRN Apr 07, 2020 12:19
--- NOTE | 2020-04-07 13:44 | RAD ---
CT head and cervical spine without contrast History: Fall during the night, hit head Technique: Noncontrast CT imaging was performed of the head and cervical spine. Multiplanar reconstruction images are submitted. Exposure: One or more of the following individualized dose reduction techniques were utilized for this examination: 1. Automated exposure control 2. Adjustment of the mA and/or kV according to patient size 3. Use of iterative reconstruction technique. Head CT Comparison: April 05, 2020 Findings: No acute extra-axial or parenchymal hemorrhage is identified. There is no significant intra-axial mass effect, midline shift, or extra-axial fluid collection. The stapleton-white differentiation of the major vascular territories is preserved. Ventricular size is proportionate to the sulcal spaces, again mild to moderate generalized supratentorial atrophy. 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 There is again mild ill-defined low-density of the supratentorial parenchyma bilaterally. The mastoid air cells and the visualized paranasal sinuses are aerated. There is no significant focal calvarial abnormality. Impression: 1. No acute intracranial abnormality is identified. 2. There is again generalized supratentorial atrophy. 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 Other ill-defined low-density of the supratentorial parenchyma is probably due to chronic microvascular ischemic disease in a patient of this age. Cervical spine CT Comparison: April 05, 2020 Findings: No acute cervical spine fracture is identified. Vertebral body stature is similar. Atlanto-axial distance is within normal limits, associated degenerative change. There is appropriate alignment of lateral masses of C1 relative to C2. Occipital condylar-C1 relationship is maintained. There is again segmental reversal of the lordotic curvature at C5-6. There is again advanced degenerative disc disease at C3-4 to C5-6, C6-7 and to lesser degree at C4-5. There is similar degree of minimal grade 1 anterior spondylolisthesis C4-5, negligible anterior spondylolisthesis C3-4. There is multilevel cervical facet degenerative change, some variable fusion such as on the left at C2-3. There is likely central canal stenosis about 8 to 9 mm at C4-5 and C3-4. There is fairly severe narrowing of the left C3-4 and C4-5 neural foramina, to lesser degree on the right at C3-3-4 and C4-5. There is atherosclerotic calcification of the carotid arteries in the neck bilaterally. Impression: 1. No acute cervical spine fracture is identified. 2. There is multilevel cervical degenerative disc disease. There is likely mild spinal stenosis greatest C3-4 and C4-5. There is neural foramina compromise greatest on the left at C3-4 and C4-5. Electronically signed by: Mayank Cheek MD (04/07/2020 1:41 PM) [id number]
--- NOTE | 2020-04-07 14:11 | RAD ---
RIBS RIGHT AND PA CHEST History: Right rib pain after a fall Comparison: April 20, 2018 Findings: Single view of the chest and 4 additional views of the right ribs are submitted. There is again triple lead left electronic cardiac device. There is likely moderate size hiatal hernia. There is somewhat tortuous thoracic aorta, atherosclerotic calcification greater near arch. There is no pneumothorax, dependent pleural fluid, or lobar consolidation. There is minimally displaced right lateral ninth rib fracture, also likely right lateral seventh rib fracture. Impression: 1. There are right lateral seventh and ninth rib fractures. Electronically signed by: Mayank Cheek MD (04/07/2020 2:09 PM) [id number]
[2020-04-07 14:41] VITALS: BP 158/76
[2020-04-07] MEDS ORDERED: ERYT1OIN6 OU (14:42)
[2020-04-07] MEDS ORDERED: HYDR-2761 PO (14:42)
[2020-04-07] MEDS ORDERED: POLY119P4 PO (14:42)
[2020-04-07] MEDS ORDERED: ERYTHROMYCIN 0.5% OPHTH OINTMENT 1GM TUBE. OU ONE (14:45)
[2020-04-07] MEDS ORDERED: HYDROcodone/APAP 5/325MG 1 TAB TABLET PO ONE (14:45)
== END 2020-04-07 15:05 | disposition home or self-care (01) ==
LOC: ER 11:21
DX: S22.41XA Multiple fractures of ribs, right side, initial encounter for closed fracture (principal); H10.33 Unspecified acute conjunctivitis, bilateral; M48.02 Spinal stenosis, cervical region; G43.909 Migraine, unspecified, not intractable, without status migrainosus; I48.91 Unspecified atrial fibrillation; J44.9 Chronic obstructive pulmonary disease, unspecified; F03.90 Unspecified dementia, unspecified severity, without behavioral disturbance, psychotic disturbance, mood disturbance, and anxiety; I25.10 Atherosclerotic heart disease of native coronary artery without angina pectoris; E78.00 Pure hypercholesterolemia, unspecified; F32.9 Major depressive disorder, single episode, unspecified; I11.9 Hypertensive heart disease without heart failure; E03.9 Hypothyroidism, unspecified; Z87.891 Personal history of nicotine dependence; Z95.0 Presence of cardiac pacemaker; I71.4 Abdominal aortic aneurysm, without rupture; W01.198A Fall on same level from slipping, tripping and stumbling with subsequent striking against other object, initial encounter; Y93.89 Activity, other specified; Y92.128 Other place in nursing home as the place of occurrence of the external cause; Y99.8 Other external cause status
CPT/HCPCS: 70450; 71101; 72125; 99285-25